=== PATIENT | female | born 1935 | race Caucasian/White ===

== ENCOUNTER 2020-05-24 10:43 | Outpatient (REF) | payer SELFPAY | END 2020-05-24 10:44 | disposition home or self-care (01) | LOC: HO.HAP 10:43 | PROVIDERS: Visit Provider Internal Medicine | DX: Z13.89 Encounter for screening for other disorder (principal) | CPT/HCPCS: 92700 ==

== ENCOUNTER 2020-09-28 14:49 | Outpatient (REF) | payer BC, SELFPAY ==
--- NOTE | ~2020-09-28 | US_ITS ---
EXAMINATION: US VENOUS ULTRASOUND WITH DOPPLER LOWER EXTREMITY, RIGHT CLINICAL INFORMATION: Pain COMPARISON: None TECHNIQUE: Ultrasound of the deep veins is performed from the hip to the calf with compression sonography and color and pulse Doppler assessment. Spectral analysis with color-flow imaging is performed. FINDINGS: There is normal venous compression and respiratory variation and augmented flow. The visualized common femoral vein, superficial femoral vein, profunda femoral vein, popliteal vein, and the trifurcation region shows no evidence of deep venous thrombosis. There is no significant popliteal fossa cyst. US/US venous duplex LE RT IMPRESSION: No DVT demonstrated in the right lower extremity.
== END 2020-09-28 14:50 | disposition home or self-care (01) ==
LOC: HO.US 14:49
PROVIDERS: Visit Provider Internal Medicine
DX: M79.661 Pain in right lower leg (principal); M79.651 Pain in right thigh
CPT/HCPCS: 93971

== ENCOUNTER 2020-10-05 08:44 | Outpatient (REF) | payer BC, SELFPAY ==
[2020-10-05 10:18] LABS: MANUAL DIFF FLAG NO
[2020-10-05 10:32] LABS: Basophils Percent Auto 0.6 % (0-2); Eosinophils Absolute Auto 0.1 X10*3/uL (0.0-0.4); Eosinophils Percent Auto 1.6 % (0-4); Hematocrit 38.8 % (37-47); Hemoglobin 13.2 g/dl (12.0-16.0); Imm Gran Abs Auto 0.01 X10*3/uL (0.00-0.03); Imm Gran Pct Auto 0.2 % (0.0-0.4); Lymphocytes Absolute Auto 2.2 X10*3/uL (1.2-4.9); Lymphocytes Percent Auto 35.3 % (20-40); Mean Corpuscular Hemoglobin 31.7 pg (27.0-33.0); Mean Platelet Volume 11.1 fL (9.4-12.3); Monocytes Absolute Auto 0.4 X10*3/uL (0.1-1.2); Monocytes Percent Auto 6.6 % (2-11); Neutrophils Absolute Auto 3.4 X10*3/uL (2.0-8.3); Neutrophils Percent Auto 55.7 % (45-73); Platelet Count 242 X10*3/uL (160-400); Red Blood Count 4.17 X10*6/uL (4.20-5.50); Red Cell Distribution Width 12.2 % (11.0-16.0); White Blood Count 6.2 X10*3/uL (4.8-10.8)
[2020-10-05 11:06] LABS: Estimated Average Glucose 128 mg/dL; Hemoglobin A1C 148.9295 umol/L; Hemoglobin A1c % 6.1 %
[2020-10-05 11:11] LABS: Alanine Aminotransferase 15 U/L (0-31); Albumin Level 4.1 g/dL (3.5-5.0); Alkaline Phosphatase 95 U/L (39-117); Anion Gap 13 (12-20); Aspartate Amino Transferase 18 U/L (5-31); Bilirubin Total 0.7 mg/dL (0.0-1.0); Blood Urea Nitrogen 32 mg/dL (9-16); Calcium 9.3 mg/dL (8.4-10.2); Carbon Dioxide 27 mmol/L (22-29); Chloride 104 mmol/L (96-108); Cholesterol 196 mg/dL; Estimated Glomerular Filt Rate 58; Glucose Fasting 113 mg/dL (60-99); HDL Cholesterol 50 mg/dL; LDL Cholesterol Calculated 117 mg/dl; Potassium 4.3 mmol/L (3.3-5.1); Sodium 140 mmol/L (135-145); Total Protein 6.9 g/dL (6.5-8.0); Triglycerides 148 mg/dL
[2020-10-05 11:34] LABS: Thyroid Stimulating Hormone 1.37 uIU/mL (0.32-4.0); Vitamin D 25-OH Total 41.1 ng/mL (>30)
== END 2020-10-05 08:45 | disposition home or self-care (01) ==
LOC: HO.10HDL 08:44
PROVIDERS: Visit Provider Internal Medicine
DX: I10 Essential (primary) hypertension (principal); K21.9 Gastro-esophageal reflux disease without esophagitis; E78.00 Pure hypercholesterolemia, unspecified; R73.01 Impaired fasting glucose; E55.9 Vitamin D deficiency, unspecified
CPT/HCPCS: 36415; 80053; 80061; 82306; 83036; 84443; 85025

== ENCOUNTER 2020-10-22 13:24 | Outpatient (REF) | payer BC, SELFPAY ==
[2020-10-22 13:41] VITALS: BP 159/72; PULSE 91; RESP 16; TEMP -13.5; TEMP 7.7; O2SAT 98
[2020-10-22 13:54] VITALS: BMI 36.0
== END 2020-10-22 13:25 | disposition home or self-care (01) ==
LOC: HO.MS 13:24
PROVIDERS: PCP Internal Medicine; Visit Provider Ophthalmology
PROC: (CPT 66821; principal; 2020-10-22 16:20)
DX: H26.491 Other secondary cataract, right eye (principal); H40.013 Open angle with borderline findings, low risk, bilateral; I10 Essential (primary) hypertension; Z79.899 Other long term (current) drug therapy; Z96.1 Presence of intraocular lens
CPT/HCPCS: 66821

== ENCOUNTER 2021-01-23 13:22 | Outpatient (RCR) | payer BC, SELFPAY | END 2021-02-06 11:42 | disposition home or self-care (01) | LOC: HO.WCC 13:22 | PROVIDERS: PCP Internal Medicine; Visit Provider Surgery | DX: S61.012D Laceration without foreign body of left thumb without damage to nail, subsequent encounter (principal) | CPT/HCPCS: 99212 ==

== ENCOUNTER 2021-04-01 09:53 | Outpatient (REF) | payer BC, SELFPAY ==
[2021-04-01 13:47] LABS: Glucose Urine UA NEG (NEG); Leukocyte Esterase Urine TRACE (NEG); Nitrite Urine NEG (NEG); Specific Gravity - Urine 1.015 (1.005-1.025); Urine Blood NEG (NEG); Urine Ketones NEG (NEG); Urine Protein NEG (NEG-TRACE)
[2021-04-01 13:49] LABS: Appearance Urine CLEAR; Color Urine YELLOW
[2021-04-01 13:51] LABS: Hemoglobin 13.1 g/dl (12.0-16.0); Mean Corpuscular HGB Conc 33.6 g/dl (31.0-35.0); Mean Corpuscular Hemoglobin 31.3 pg (27.0-33.0); Mean Corpuscular Volume 93.1 fL (80-98); Mean Platelet Volume 12.1 fL (9.4-12.3); Platelet Count 250 X10*3/uL (160-400); Red Blood Count 4.19 X10*6/uL (4.20-5.50); Red Cell Distribution Width 12.2 % (11.0-16.0); White Blood Count 6.1 X10*3/uL (4.8-10.8)
[2021-04-01 14:07] LABS: Alanine Aminotransferase 16 U/L (0-31); Albumin Level 4.1 g/dL (3.5-5.0); Alkaline Phosphatase 90 U/L (39-117); Anion Gap 16 (12-20); Aspartate Amino Transferase 18 U/L (5-31); Bilirubin Total 0.7 mg/dL (0.0-1.0); Blood Urea Nitrogen 31 mg/dL (9-16); Calcium 9.9 mg/dL (8.4-10.2); Carbon Dioxide 25 mmol/L (22-29); Chloride 106 mmol/L (96-108); Cholesterol 184 mg/dL; Estimated Glomerular Filt Rate 58; Glucose Fasting 100 mg/dL (60-99); HDL Cholesterol 50 mg/dL; LDL Cholesterol Calculated 111 mg/dl; Potassium 4.6 mmol/L (3.3-5.1); Sodium 142 mmol/L (135-145); Total Protein 6.8 g/dL (6.5-8.0); Triglycerides 115 mg/dL
[2021-04-01 14:10] LABS: Bacteria Urine TRACE /LPF; RBC Urine 0-2 /HPF (0); Squamous Epithelial Cell Urine 1+ /LPF; WBC Urine 0-2 /HPF (0-4)
== END 2021-04-01 09:54 | disposition home or self-care (01) ==
LOC: HO.10HDL 09:53
PROVIDERS: Visit Provider Internal Medicine
DX: E78.00 Pure hypercholesterolemia, unspecified (principal); I10 Essential (primary) hypertension
CPT/HCPCS: 36415; 80053; 80061; 81001; 85027

== ENCOUNTER 2021-05-31 09:23 | Outpatient (REF) | payer BC, SELFPAY ==
[2021-05-31 10:29] LABS: Estimated Average Glucose 134 mg/dL; Hemoglobin A1c % 6.3 %
[2021-05-31 10:30] LABS: Glucose Fasting 107 mg/dL (60-99)
== END 2021-05-31 09:24 | disposition home or self-care (01) ==
LOC: HO.10HDL 09:23
PROVIDERS: Visit Provider Internal Medicine
DX: R73.01 Impaired fasting glucose (principal)
CPT/HCPCS: 36415; 82947; 83036

== ENCOUNTER → 2021-07-22 11:02 | Outpatient (BNVA) | payer BC, SELFPAY | PROVIDERS: PCP Internal Medicine; Visit Provider Orthopaedic Surgery | DX: M25.562 Pain in left knee (principal); M70.62 Trochanteric bursitis, left hip; M54.30 Sciatica, unspecified side; R26.9 Unspecified abnormalities of gait and mobility | CPT/HCPCS: 20610; J1100 ==

== ENCOUNTER → 2021-08-07 13:31 | Outpatient (BNVA) | payer BC, SELFPAY | PROVIDERS: PCP Internal Medicine; Referring Provider Internal Medicine; Visit Provider Internal Medicine Cardiovascular Disease | DX: I10 Essential (primary) hypertension (principal); R42 Dizziness and giddiness | CPT/HCPCS: 93005 ==

== ENCOUNTER 2021-08-15 12:47 | Outpatient (REF) | payer BC, SELFPAY ==
[2021-08-15 14:16] LABS: MANUAL DIFF FLAG NO
[2021-08-15 14:21] LABS: Basophils Percent Auto 0.4 % (0-2); Eosinophils Absolute Auto 0.1 X10*3/uL (0.0-0.4); Hematocrit 37.5 % (37.0-47.0); Hemoglobin 12.5 g/dl (12.0-16.0); Imm Gran Abs Auto 0.01 X10*3/uL (0.00-0.03); Imm Gran Pct Auto 0.1 % (0.0-0.4); Lymphocytes Absolute Auto 1.8 X10*3/uL (1.2-4.9); Lymphocytes Percent Auto 25.9 % (20-40); Mean Corpuscular HGB Conc 33.3 g/dl (31.0-35.0); Mean Corpuscular Hemoglobin 31.3 pg (27.0-33.0); Mean Corpuscular Volume 93.8 fL (80.0-98.0); Mean Platelet Volume 11.4 fL (9.4-12.3); Monocytes Absolute Auto 0.5 X10*3/uL (0.1-1.2); Monocytes Percent Auto 7.4 % (2-11); Neutrophils Absolute Auto 4.5 x10*3/uL (2.0-8.3); Neutrophils Percent Auto 65.2 % (45-73); Platelet Count 268 X10*3/uL (160-400); Red Cell Distribution Width 12.7 % (11.0-16.0); White Blood Count 6.9 X10*3/uL (4.8-10.8)
[2021-08-15 14:53] LABS: Anion Gap 13 (12-20); Blood Urea Nitrogen 33 mg/dL (9-16); Calcium 10.1 mg/dL (8.4-10.2); Carbon Dioxide 27 mmol/L (22-29); Chloride 105 mmol/L (96-108); Estimated Glomerular Filt Rate 55; Glucose Random 101 mg/dL (60-115); Potassium 4.8 mmol/L (3.3-5.1); Sodium 140 mmol/L (135-145)
== END 2021-08-15 12:48 | disposition home or self-care (01) ==
LOC: HO.10HDL 12:47
PROVIDERS: Visit Provider Internal Medicine
DX: I10 Essential (primary) hypertension (principal); D72.829 Elevated white blood cell count, unspecified
CPT/HCPCS: 36415; 80048; 85025

== ENCOUNTER → 2021-08-20 11:41 | Outpatient (REF) | payer BC, SELFPAY ==
--- NOTE | 2021-08-20 11:46 | HM_ITS ---
Total monitoring time 3 days and 13 hours. Underlying rhythm is sinus. Minimum heart rate 63/Min. Maximum 114/Min. Average 82/Min. No atrial fibrillation or flutter or AV blocks or pauses. Rare supraventricular ectopy with minimal burden. Rare ventricular ectopy, 1 couplet. 2 morphologies. Minimal burden. No patient events. MTDD
== END ==
LOC: HO.CARD 11:41
PROVIDERS: Visit Provider Internal Medicine Cardiovascular Disease
DX: R42 Dizziness and giddiness (principal)
CPT/HCPCS: 93242

== ENCOUNTER → 2021-09-11 10:30 | Outpatient (REF) | payer BC, MEDICARE, SELFPAY ==
--- NOTE | 2021-09-11 10:32 | CA_ITS ---
Transthoracic Echocardiogram Patient (Last, First, Middle): Bindu Driscoll A Gender: Female Date of : 1935 Age: 86 Procedure Date: 09/11/2021 Procedure Type: Transthoracic Echocardiogram Location: OP Height: 162.56 cm Weight: 92.53 kg BSA: 1.97 m2 Heart Rate: bpm BP: 128 / 78 mmHg Medical Scribe: JOANA Referring MD: Saravanan Arita MD Mash Tub Cooker: Saravanan Arita MD Symptoms: R42 - Dizziness and giddiness Study Quality: Fair ECG Rhythm: Sinus Conclusions: - 1. Normal LV systolic function with impaired relaxation filling pattern 2. Mildly dilated left atrium 3. Normal cardiac valvular Doppler 4. Normal RV systolic pressure 5. No gross pericardial effusion Findings Left Ventricle Normal left ventricular size, thickness, and systolic function. The visually estimated ejection fraction is between 60-65%. Spectral Doppler is indicative of an impaired relaxation filling pattern. E/E prime ratio is between 8 and 15 consistent with indeterminate filling pressures. Right Ventricle Normal right ventricular cavity size and systolic function. Atria The left atrium is mildly dilated. Interatrial shunt cannot be excluded. The right atrium is normal in size. Aortic Valve There is mild calcification of the aortic valve. There is no aortic valve stenosis. There is no aortic valve regurgitation. Mitral Valve There is mild anterior and posterior mitral leaflet thickening. There is mild mitral annular calcification. There is trace mitral valve regurgitation. There is no mitral valve stenosis. Pulmonic Valve The pulmonic valve was not well visualized. Tricuspid Valve Likely normal tricuspid valve structure and function. There is trace tricuspid valve regurgitation. The right ventricular systolic pressure is normal. The right ventricular systolic pressure is 15 mmHg. Normal right atrial pressure. There is no evidence of pulmonary hypertension. Great Vessels All visible segments of the aorta are normal in size. The pulmonary artery was not well visualized. Venous The inferior vena cava is normal in size and collapses greater than 50% with inspiration. Pericardium/Pleural There is no evidence of pericardial effusion. Prior Study Comparison No prior study available for comparison. Measurements 2D Linear Measurements IVSd: 1.11 0.6-0.9/0.6-1.0 cm LVIDd: 4.68 3.9-5.3/4.2-5.9 cm LVIDd Index: 2.38 2.4-3.2/2.2-3.1 cm/m2 LVIDs: 3.46 2.0-3.6 cm LVPWd: 0.95 0.7-1.1 cm Ao Root: 3.30 2.1-3.5 cm LA Diam: 3.20 2.7-3.8/3.0-4.0 cm LAIDs Index: 1.62 1.5-2.3 cm/m2 LV Mass: 211.12 67-162/88-224 g LV Mass Index: 107.17 43-95/49-115 g/m2 LVOT Diam: 2.10 3.0+(-)1.3 cm 2D Systolic Function EF 4C: 61.60 >55% EF 2C: 72.70 >55% EF BiP: 68.40 >55% Mitral Valve MV Pk E: 0.67 MV PK A: 1.10 MV Decel Time: 183.00 E/A: 0.60 E'Lateral: 7.07 E'Medial: 5.55 E/E' Med: 12.10 E/E' Lat: 9.50 PHT: 54.00 MVA PHT: 4.07 Decel [place]: 3.67 Aortic Valve AoV Pk Bob: 1.60 AoV Mn Bob: 1.08 AoV VTI: 0.35 AoV Pk Grad: 10.00 Aov Mn Grad: 5.00 GROVER Cont.VTI: 2.41 LVOT LVOT Pk Bob: 1.05 LVOT Mn Bob: 0.72 LVOT VTI: 0.24 LVOT Pk Grad: 4.00 LVOT Mn Grad: 2.00 LVOT Diam: 2.10 LVOT Area: 3.46 Diastolic Function MV Pk E: 0.67 MV Pk A: 1.10 E/A: 0.60 E'Medial: 5.55 E/E' Med: 12.10 E' Laterial: 7.07 E/E' Lat: 9.50 Right Ventricle TAPSE (mm): 21.30 TVS' Bob: 9.03 Tricuspid Valve TR Pk Bob: 1.75 TR Pk Grad: 12.00 RA Press: 3.00 RVSP: 15.00 Great Vessels Aorta Ao Root-2D: 3.30 2.0-3.7 cm Ao Asc: 3.10 2.1-3.4 cm Ao Arch: 2.60 Updated in Other Vendor System with Status of Final Saravanan Arita MD electronically signed on 09/11/2021 2:07:10 PM with status of Final
== END ==
LOC: HO.CARD 10:30
PROVIDERS: PCP Internal Medicine; Visit Provider Internal Medicine Cardiovascular Disease
DX: R42 Dizziness and giddiness (principal)
CPT/HCPCS: 93306

== ENCOUNTER → 2021-09-12 11:18 | Outpatient (BNVA) | payer BC, MEDICARE, SELFPAY | PROVIDERS: PCP Internal Medicine; Referring Provider Internal Medicine; Visit Provider Internal Medicine Cardiovascular Disease ==

== ENCOUNTER → 2021-09-18 10:02 | Outpatient (REF) | payer BC, SELFPAY ==
--- NOTE | ~2021-09-18 | NM_ITS ---
Myocardial perfusion study Indication: Dizziness evaluate for myocardial ischemia Technique: The patient was brought in for a Lexiscan perfusion study on 09/18/2021. Patient performed low-level exercise and was injected 0.4 mg of Lexiscan intravenously. Within a minute of injection, 25 mCi of sestamibi was given intravenously. Images were obtained using the SPECT gamma camera interlaced with the gating device. Images were obtained in supine position. Resting perfusion study was performed on 09/19/2021. Patient was administered 25 mCi of sestamibi intravenously at rest. Images were then obtained in supine position. Images obtained with and without CT attenuation. Total DLP 129 mGy-cm. Images were processed with the software and compared side to side in short axis, horizontal long axis and vertical long axis views. Findings: The stress perfusion study showed non attenuated images show minimally reduced uptake in thinning in the distal lateral wall of the LV myocardium.. Otherwise normal uptake in the other segments. Attenuation corrected images show normal uptake in all segments of LV myocardium.. The gated study shows normal LV systolic function with calculated LVEF of 71%. LV cavity is normal in size. The gated study shows normal systolic wall thickening and contraction of segments. Resting study shows attenuated corrected images show normal uptake of radiotracer in all segments of LV myocardium. Gating at rest reveals normal systolic wall motion with ejection fraction at 68%. The findings are consistent with normal myocardial perfusion. NM/NM vanda perf SPECT rest & str Impression: 1. Myocardial perfusion imaging study shows normal myocardial perfusion 2. Gated LVEF is 68% 3. Transient ischemic dilatation not present EKG is nondiagnostic for ischemia
--- NOTE | 2021-09-18 10:05 | CA_ITS ---
Acquisition Time: 2021-09-18 10:29:30 Total Exercise Time: 00:02:00 Test Indications: dizziness Medications: Protocol: LEXISCAN Max HR: 111 BPM 81% of Pred: 136 BPM Max BP: 146/068 mmHG Max Work Load: 1.0 METS Pharmacological stress test with Lexiscan injection, while sitting and kicking her legs, without anginal symptoms, with isolated PVCs, with normotensive response to injection, with nondiagnostic EKG for ischemia. In recovery she reported fatigue and was treated with Aminophyllne 75mg IVP to reverse Lexscan with resolution of symptom. Nuclear images pending. Test reviewed with Dr Arita. Referred By: Saravanan Arita Overread By: AKASH LOZADA
== END ==
LOC: HO.CARD 10:02
PROVIDERS: Visit Provider Internal Medicine Cardiovascular Disease
DX: R42 Dizziness and giddiness (principal); I10 Essential (primary) hypertension
CPT/HCPCS: 78452; 93017; A9500; J0280; J2785

== ENCOUNTER 2022-01-08 12:24 | Outpatient (REF) | payer BC, SELFPAY ==
--- NOTE | ~2022-01-08 | US_ITS ---
EXAMINATION: US ABDOMEN COMPLETE CLINICAL INFORMATION: Nausea, gallstones. COMPARISON: CT abdomen and pelvis with contrast 10/18/2018. TECHNIQUE: Real-time imaging of the abdominal viscera. FINDINGS: PANCREAS: Normal. ABDOMINAL AORTA: The proximal, mid, and distal segments are normal in caliber. INFERIOR VENA CAVA: Visualized portions are normal. LIVER: The liver is normal in size. The liver contour is normal. Parenchymal echogenicity is normal. There is no intrahepatic biliary duct dilatation seen. There is an anechoic cyst in the right hepatic lobe measuring 0.9 x 0.8 x 0.8 cm. GALLBLADDER: The gallbladder is physiologically distended. Multiple mobile gallstones are present. No evidence of gallbladder wall thickening or pericholecystic fluid. COMMON BILE DUCT: Normal in caliber measuring 0.3 cm in diameter. RIGHT KIDNEY: There is an anechoic upper pole cyst measuring 5.1 x 4.5 x 4.8 cm. No hydronephrosis or renal calculi. The kidney measures 9.0 cm in maximum dimension. LEFT KIDNEY: Normal. No hydronephrosis. No renal calculi or focal parenchymal lesions. The kidney measures 9.6 cm in maximum dimension. SPLEEN: Normal. The spleen measures 9.1 cm in maximum dimension. FREE FLUID: None. US/US abdomen complete IMPRESSION: Cholelithiasis without wall thickening. Right hepatic lobe and right renal upper pole cysts.
== END 2022-01-08 12:25 | disposition home or self-care (01) ==
LOC: HO.US 12:24
PROVIDERS: PCP Internal Medicine; Visit Provider Internal Medicine
DX: R11.0 Nausea (principal); K80.20 Calculus of gallbladder without cholecystitis without obstruction
CPT/HCPCS: 76700

== ENCOUNTER 2022-01-09 09:49 | Outpatient (REF) | payer BC, SELFPAY ==
[2022-01-09 10:11] LABS: MANUAL DIFF FLAG NO
[2022-01-09 10:28] LABS: Basophils Percent Auto 0.5 % (0-2); Eosinophils Absolute Auto 0.1 X10*3/uL (0.0-0.4); Eosinophils Percent Auto 1.2 % (0-4); Hematocrit 38.7 % (37.0-47.0); Hemoglobin 12.8 g/dl (12.0-16.0); Imm Gran Abs Auto 0.02 X10*3/uL (0.00-0.03); Imm Gran Pct Auto 0.3 % (0.0-0.4); Lymphocytes Percent Auto 26.2 % (20-40); Mean Corpuscular HGB Conc 33.1 g/dl (31.0-35.0); Mean Corpuscular Volume 93.7 fL (80.0-98.0); Mean Platelet Volume 10.4 fL (9.4-12.3); Monocytes Absolute Auto 0.5 X10*3/uL (0.1-1.2); Monocytes Percent Auto 6.3 % (2-11); Neutrophils Absolute Auto 5.1 x10*3/uL (2.0-8.3); Neutrophils Percent Auto 65.5 % (45-73); Platelet Count 274 X10*3/uL (160-400); Red Blood Count 4.13 X10*6/uL (4.20-5.50); Red Cell Distribution Width 13.2 % (11.0-16.0); White Blood Count 7.7 X10*3/uL (4.8-10.8)
[2022-01-09 10:56] LABS: Alanine Aminotransferase 16 U/L (0-31); Alkaline Phosphatase 95 U/L (39-117); Amylase 54 U/L (28-100); Aspartate Amino Transferase 17 U/L (5-31); Bilirubin Direct 0.3 mg/dL (0.0-0.5); Bilirubin Total 0.8 mg/dL (0.0-1.0); Lipase 12 U/L (8-78); Total Protein 6.6 g/dL (6.5-8.0)
[2022-01-09 10:58] LABS: Alanine Aminotransferase 17 U/L (0-31); Alkaline Phosphatase 94 U/L (39-117); Anion Gap 14 (12-20); Aspartate Amino Transferase 18 U/L (5-31); Bilirubin Total 0.8 mg/dL (0.0-1.0); Blood Urea Nitrogen 31 mg/dL (9-16); Calcium 9.5 mg/dL (8.4-10.2); Carbon Dioxide 26 mmol/L (22-29); Chloride 106 mmol/L (96-108); Cholesterol 196 mg/dL; Estimated Glomerular Filt Rate 54; Glucose Random 101 mg/dL (60-115); HDL Cholesterol 53 mg/dL; LDL Cholesterol Calculated 124 mg/dl; Potassium 4.6 mmol/L (3.3-5.1); Sodium 141 mmol/L (135-145); Total Protein 6.7 g/dL (6.5-8.0); Triglycerides 95 mg/dL
[2022-01-09 11:16] LABS: Appearance Urine CLEAR; Color Urine YELLOW; Glucose Urine UA NEG (NEG); Leukocyte Esterase Urine 1+ (NEG); Nitrite Urine NEG (NEG); Urine Blood NEG (NEG); Urine Ketones NEG (NEG); Urine Protein NEG (NEG-TRACE)
[2022-01-09 11:20] LABS: Free T4 (Free Thyroxine) 1.29 ng/dL (0.71-1.85); Thyroid Stimulating Hormone 0.98 uIU/mL (0.32-4.0)
[2022-01-09 13:40] LABS: Squamous Epithelial Cell Urine 2+ /LPF
[2022-01-09 13:42] LABS: RBC Urine 0 /HPF (0)
== END 2022-01-09 09:50 | disposition home or self-care (01) ==
LOC: HO.LAB 09:49
PROVIDERS: Absent Provider Internal Medicine; PCP Internal Medicine; Visit Provider Internal Medicine
DX: I10 Essential (primary) hypertension (principal); K21.00 Gastro-esophageal reflux disease with esophagitis, without bleeding; E78.00 Pure hypercholesterolemia, unspecified; R11.0 Nausea; K80.20 Calculus of gallbladder without cholecystitis without obstruction
CPT/HCPCS: 36415; 80053; 80061; 80076; 81001; 82150; 82248; 83690; 84439; 84443; 85025

== ENCOUNTER 2022-01-14 11:12 | Outpatient (REF) | payer BC, SELFPAY ==
--- NOTE | ~2022-01-14 | MM_ITS ---
EXAMINATION: MM SCREENING DIGITAL BREAST TOMOSYNTHESIS, BILATERAL CLINICAL INFORMATION: Screening. Asymptomatic. The lifetime risk of breast cancer based on the Tyrer-Cuzick Model is 1%. COMPARISON: Mammography: 10/10/2019, 06/07/2018, 01/13/2017 TECHNIQUE: Digital breast tomosynthesis is performed in both the craniocaudal and mediolateral oblique views along with computer-aided detection (CAD). Synthesized 2D images are generated from the tomosynthesis. FINDINGS: There are scattered areas of fibroglandular density (ACR BI-RADS breast composition Category b). There are no significant masses, abnormal calcifications, or other abnormalities. Parenchymal pattern is similar to prior studies. No developing density or interval architectural abnormality. The axilla and skin contours are unremarkable. Left breast again shows stable grouped ductal secretory calcifications central breast mid depth. Right breast again shows stable punctate round calcifications anterior upper outer breast also stable since 2017. MM/MM tomosynthesis screening BI IMPRESSION: No significant changes from prior studies. ASSESSMENT: BI-RADS 2: Benign RECOMMENDATION: Routine annual mammography screening. This patient's information was entered into a reminder system with a target due date for their next mammogram.
== END 2022-01-14 11:13 | disposition home or self-care (01) ==
LOC: HO.MAMMO 11:12
PROVIDERS: PCP Internal Medicine; Visit Provider Internal Medicine
DX: Z12.31 Encounter for screening mammogram for malignant neoplasm of breast (principal)
CPT/HCPCS: 77063; 77067

== ENCOUNTER 2022-09-10 09:00 | Outpatient (RCR) | payer BC, SELFPAY | END 2022-09-10 16:00 | disposition home or self-care (01) | LOC: HO.WCC 09:00 | PROVIDERS: PCP Internal Medicine; Visit Provider Physician Assistant | DX: S51.011D Laceration without foreign body of right elbow, subsequent encounter (principal); M31.6 Other giant cell arteritis; Z79.52 Long term (current) use of systemic steroids; Z79.899 Other long term (current) drug therapy | CPT/HCPCS: 97597; 99212 ==

== ENCOUNTER 2023-08-07 08:06 | Outpatient (RCR) | payer BC, SELFPAY | END 2023-08-31 17:00 | disposition home or self-care (01) | LOC: HO.WCC 08:06 | PROVIDERS: PCP Internal Medicine; Visit Provider Physician Assistant | DX: I87.331 Chronic venous hypertension (idiopathic) with ulcer and inflammation of right lower extremity (principal); L97.811 Non-pressure chronic ulcer of other part of right lower leg limited to breakdown of skin; M31.5 Giant cell arteritis with polymyalgia rheumatica | CPT/HCPCS: 11042; 97597; 99212 ==

== ENCOUNTER 2024-07-31 00:25 | Observation (INO) | payer MEDICARE, BC, SELFPAY ==
[2024-07-31] VITALS (10 sets, daily range): BP systolic 124–156; BP diastolic 42–66; PULSE 55–101; RESP 15–20; TEMP 36.1–36.5; O2SAT 55–100; BMI 34.8; BMI 35.3
--- NOTE | ~2024-07-31 | XR_ITS ---
CLINICAL HISTORY: rt proximal humerus fx 2 view right shoulder Comparison: CT/SR - CT CHEST W IV CON - 07/31/24 01:17 EST Findings: The slightly comminuted right humeral neck fracture is reidentified. The shaft is displaced at least one shaft width anteriorly relative to the humeral head and there is associated shortening. Fracture margins appear relatively well corticated and may be chronic. Small surrounding foci of heterotopic ossification versus intra-articular bodies. Mild glenohumeral and acromioclavicular osteoarthritis. IMPRESSION: Right humeral neck fracture is reidentified. The fracture is favored to be chronic given the relatively well corticated margins and pseudoarthrosis which are better seen on the same-day chest CT. This document has been electronically signed by: Maury Ryan DO on 07/31/2024 09:52:52
--- NOTE | ~2024-07-31 | CT_ITS ---
CLINICAL HISTORY: fall, N V CT head without contrast Comparison: None Findings: No acute intracranial hemorrhage. Mild white matter lesions are nonspecific and likely due to small-vessel ischemic disease. Mild-moderate volume loss is generalized. No hydrocephalus accounting for this volume loss. No midline shift. Low bone mineralization suggested. No acute skull fracture. Imaged paranasal sinuses and imaged mastoid air cells are well aerated. Vascular calcifications noted. Scleral calcifications noted. Previous cataract procedure changes noted. Metal artifacts about imaged mouth. IMPRESSION: 1. No acute intracranial abnormality by CT. 2. No acute skull fracture. This document has been electronically signed by: Jesus Cardoso MD on 07/31/2024 02:00:03
--- NOTE | ~2024-07-31 | CT_ITS ---
CLINICAL HISTORY: fall, large equimosis R flank R back CT abdomen and pelvis with contrast Comparison: None Findings: Acute nondisplaced right dorsal-lateral 10th, 11th, and 12th rib fractures are in the [id number] of this abdomen study. Overlying soft tissue hematoma superficial measuring 5.7 x 9.7 cm. Mild atelectasis in the [id number]. No acute solid abdominal organ injury. Mild fat deposition in the liver with nonenlarged spleen. Mild adrenal hyperplasia. Cholelithiasis noted in the distended gallbladder. Pancreas unremarkable. No hydronephrosis of either kidney. No suspicious features of cystic lesions in the kidneys with largest measuring 6 cm on the right. Small mesenteric lymph nodes may be reactive. No small bowel obstruction in the ljwue-sl-gura. Calcified and noncalcified plaque involving the imaged aorta and its branches. Imaged appendix is retrocecal and nondilated. Severe stool burden is present, including the cecum. Uterus is diminutive or surgically absent. No definite adnexal soft tissue mass. Portions of the pelvis obscured by artifacts including from metal of the left hip arthroplasty. No definite hardware loosening. No acute pelvic fracture. Mild pelvis deformities appear old chronic. Grade 1 anterolisthesis at L4-L5. Vacuum disc phenomenon is multifocal. Facet arthropathy is multifocal. Subcutaneous edema noted particularly dependently. IMPRESSION: 1. Acute nondisplaced right dorsal rib fractures in the [id number] of this abdomen study. No acute solid organ injury. 2. Right dorsal soft tissue hematoma; approaching 10 cm. 3. Severe stool burden. No small bowel obstruction. 4. Cholelithiasis by CT. This document has been electronically signed by: Jesus Cardoso MD on 07/31/2024 02:11:56
--- NOTE | ~2024-07-31 | CT_ITS ---
CLINICAL HISTORY: fall, large equimosis R flank R back Exam: CT chest with contrast Comparison: Chest CT from 10/03/2016 Findings: New mild bibasilar atelectasis and scarring. No consolidation, pneumothorax, or pleural effusion. Scarring includes the imaged lung apices with mild emphysematous changes. Mild secretions noted in the imaged trachea. Vascular calcifications noted including aorta, its branches, and coronary arteries. No mediastinal hematoma or acute aortic injury. Multiple artifacts including about imaged thyroid. Comminuted fracture of the proximal humerus is favored to be old/chronic. Small lucencies relates concern for acuity and/or re-injury with overriding of the major fracture fragments. Degenerative changes include both shoulders. No displaced rib fracture in the field of view. Please refer to separate report for abdomen and pelvis. Partially imaged right dorsal hematoma measures 5 x 9 cm in the field of view of the chest study. No underlying right dorsal rib fracture in the field of view. Mild mid and upper vertebral height losses appear old chronic including T4. Impression: 1. Right dorsal hematoma without underlying displaced rib fracture in the field of view. Please refer to separate report for abdomen and pelvis. 2. Comminuted proximal right humerus fracture with likely re-injury given proximal lucencies. 3. Mild bibasilar atelectasis and scarring. This document has been electronically signed by: Jesus Cardoso MD on 07/31/2024 02:10:30
--- NOTE | ~2024-07-31 | CT_ITS ---
CLINICAL HISTORY: fall CT cervical spine without contrast Comparison: None Findings: Straightening of the cervical lordosis with multifocal facet arthropathy. No acute fracture cervical spine. Partial anterior fusion of the C1 and C2 with moderate osteoarthritis of the craniocervical junction. Ligament calcifications are multifocal. Nutrient vessel channels noted. No significant listhesis. Disc osteophyte complexes with mild spinal canal stenosis at C5-C6 and C6-C7 with mild to moderate foraminal narrowing at C5-C6. Low bone mineralization suggested including imaged clivus. No paraspinal hematoma. Vascular calcifications noted. Subcutaneous edema is present. Mild scarring of the imaged lung apices. IMPRESSION: No acute fracture of the cervical spine. This document has been electronically signed by: Jesus Cardoso MD on 07/31/2024 01:57:35
--- NOTE | 2024-07-31 00:38 | ECG_ITS ---
Test Reason : WEAKNESS Blood Pressure : / mmHG Vent. Rate : 079 BPM Atrial Rate : 079 BPM P-R Int : 166 ms QRS Dur : 140 ms QT Int : 420 ms P-R-T Axes : 028 -09 073 degrees QTc Int : 481 ms Normal sinus rhythm Left bundle branch block Abnormal ECG No previous ECGs available Referred By: Tiara Lopez Electronically Signed By:ARTUR DEGROOT MD
--- NOTE | 2024-07-31 00:47 | ECG_ITS ---
Test Reason : WEAKNESS Blood Pressure : / mmHG Vent. Rate : 080 BPM Atrial Rate : 080 BPM P-R Int : 168 ms QRS Dur : 144 ms QT Int : 422 ms P-R-T Axes : 040 -09 074 degrees QTc Int : 486 ms Normal sinus rhythm Left bundle branch block Abnormal ECG When compared with ECG of 31-JUL-2024 00:41, No significant change was found Referred By: Tiara Lopez Electronically Signed By:ARTUR DEGROOT MD
--- NOTE | 2024-07-31 00:53 | ED.FALL ---
HPI - Fall General Chief Complaint: Fall Stated Complaint: Fall Time Seen by Provider: 07/31/24 00:38 Source: patient and EMS Mode of arrival: EMS Limitations: other History of Present Illness ED Provider: Dr. Tiara Lopez HPI Narrative: Patient comes to the emergency room complaining of a fall. Patient states that earlier today, 13 hours ago she was at home, patient was standing, turning around, lost her footing and fell landing on her right side of her body. Patient states that she does not believe that she hit her head or lost consciousness. However, patient was complaining of pain in the right side of her body around the chest/abdominal area. Patient was not able to get up by herself, her son help her. Patient states that she was doing well for the rest of the day until almost 12 hours later after the fall. Patient had nausea vomiting. Patient's son became concerned and sent the patient to the emergency room. Patient complaining of ongoing pain in the right side of the ribs/abdomen, denies headache, no neck pain. Denies shortness of breath. Patient denies being on blood thinners Related Data Home Medications ?Medication ?Instructions ?Recorded ?Confirmed [id number] acid 0.4 1 tab PO DAILY 07/22/21 09/12/21 mg-lycopene 300 mcg-lutein 250 mcg tablet (Centrum Silver) omeprazole 20 mg capsule,delayed 20 mg PO DAILY 07/22/21 09/12/21 release ramipril 5 mg capsule (Altace) 5 mg PO DAILY 07/22/21 09/12/21 cholecalciferol (vitamin D3) 25 25 mcg PO DAILY 08/07/21 09/12/21 mcg (1,000 unit) capsule hydrochlorothiazide 12.5 mg tablet 12.5 mg PO 3XW 08/07/21 09/12/21 atorvastatin 20 mg tablet 40 mg PO DAILY 09/12/21 09/12/21 Allergies Allergy/AdvReac Type Severity Reaction Status Date / Time Sulfa (Sulfonamide AdvReac Intermediate GI UPSET Verified 07/31/24 01:13 Antibiotics) [SULFA (SULFONAMIDE ANTIBIOTICS)] Review of Systems Review of Systems: Constitutional : No Weight loss, No Fever, No Chills, No Night Sweats, No Fatigue, No Malaise ENT/Mouth : No Hearing loss, No Ear Pain, No Nasal Congestion, No Sinus Pain, No Hoarseness, No sore throat, No Rhinorrhea, No Swallowing Difficulty Eyes: No Eye Pain, No Swelling, No Redness, No Foreign Body, No Discharge, No Vision Changes Cardiovascular : No Chest Pain, No SOB, No Dyspnea on Exertion, No Orthopnea, No Edema, No Palpitations Respiratory : No Cough, No Sputum, No Wheezing, No Smoke Exposure, No Dyspnea Gastrointestinal : Earlier today 1 episode of nausea and vomiting, No Diarrhea, No Constipation, complaining of right-sided abdominal pain/rib pain Genitourinary : no irregular bleeding, No Dysuria, No Urinary Frequency, No Hematuria, No Urinary Incontinence, No Urgency, No Flank Pain, No Urinary Flow Changes, No Hesitancy Musculoskeletal : Complaining of pain in the right side of the ribs, No Myalgias, No Joint Swelling Skin : No Skin Lesions, No rash Neuro : No Weakness, No Numbness, No Paresthesias, No Loss of Consciousness, No Dizziness, No Headache Psych : No Anxiety/Panic, No Depression, No SI/HI/AH/VH, No Social Issues, Heme/Lymph: No Bruising, No Bleeding,No Lymphadenopathy Endocrine : No Polyuria, No Polydipsia, No Temperature Intolerance PMFSH Past Medical History Medical History GERD (gastroesophageal reflux disease) Hypercholesteremia Hypertension Surgical History H/O: hysterectomy Family History Family History Mother Cardiovascular disease Atrial fibrillation Father CHF (congestive heart failure) Sister Diabetes Social History Social History Alcohol intake: current Alcohol intake frequency: a few times a month Alcohol type: wine Patient Tobacco Use Status: Never used Tobacco Advance Directives: No Advance Directives Information Provided: Yes Current occupational status: retired Physical Exam Vital Signs: Vital Signs: Last Vital Signs Temp 97.6 F 07/31/24 01:00 Pulse 78 07/31/24 01:00 Resp 19 07/31/24 01:00 BP 131/42 L 07/31/24 01:00 Pulse Ox 97 07/31/24 01:00 O2 Del Method Room Air 07/31/24 01:00 BMI result Body Mass Index 34.8 Const: Other: Appearance: Alert. Oriented X3. No acute distress. Eyes: Pupils equal, round and reactive to light. ENT: Pharynx normal. Neck: Normal inspection. Neck supple. No lymph nodes noted. No crepitus CVS: Normal heart rate and rhythm. Pulses normal. Normal S1 and S2 Respiratory: No respiratory distress. Breath sounds normal. No Wheezing. No rales Abdomen: Soft and nontender. No rigidity. No distention. Skin: Skin warm and dry. Patient has an extensive ecchymosis on the right side of the chest, more on the lateral side/posterior Extremities: No lower extremity edema. No Lacerations. No Rash Neuro: Oriented X 3. No motor deficit. No sensory deficit. Moving all extremities. No slurred speech. CN 2 through 12 grossly intact Psych: calm, cooperative, normal affect Course Course Course Narrative: Patient has an extensive ecchymosis on the right side of her body around the posterior/lateral aspect of the ribs All of patient's labs pending CT scan pending Patient declined pain medication at this time Medications Administered Discontinued Medications Generic Name Dose Route Start Last Admin Trade Name Freq PRN Reason Stop Dose Admin Iohexol 85 ml 07/31/24 01:31 07/31/24 01:31 Iohexol 350 Mg/Ml 100 Ml Infus..Btl IV 07/31/24 01:32 85 ml ONCE ONE Administration Medical Decision Making Medical Decision Making [facility] Narrative: My interpretation of labs: Patient's hematology shows a decreased hemoglobin and hematocrit (9.6/28.1) from previous labs (12.8/38.7). However, previous labs were drawn in 2021. Patient's chemistry does not show any significant acute abnormality, troponin negative. Serology negative for influenza RSV and COVID Head CT and cervical spine CT do not show any acute abnormality. CT scans of chest abdomen and pelvis show a large ecchymosis in the right posterior back and posterior nondisplaced rib fractures, 10 11 and 12 Hemoglobin/hematocrit was repeated, no significant change, now hemoglobin is 9.4, overall stable Vitals are stable Patient states that she does not have any pain. However, any tetanus she moves she has significant pain. Patient states that at this time she would like some Tylenol but nothing stronger than that. Patient states that as long as she does not move she has no pain. Patient lives by herself, patient states that she has services at home, visiting nurses twice a day but no one at night to help her. Patient's children are working on getting her a visiting nurse for nighttime. According to the patient's son who is at bedside, they will start the process 1st thing in the morning Urinalysis is pending, patient has not provided a urine sample. I discussed the patient with Dr. Faust from the Medicine team, patient being admitted for observation and pain management Differential Diagnosis Differential Diagnoses: The differential diagnosis associated with the presentation includes (Contusion, ecchymosis with active extravasation, cervical spine injury, intracranial hemorrhage, UTI) Lab Data MDM Lab Attestation statement: I reviewed the patient's lab results. 07/31/24 02:40 07/31/24 00:58 Labs: Lab Results 07/31/24 07/31/24 07/31/24 Range/Units 00:57 00:58 02:40 WBC 7.5 7.7 (4.8-10.8) X10*3/uL RBC 2.87 L D 2.84 L (4.20-5.50) X10*6/uL Hgb 9.6 L D 9.4 L (12.0-16.0) g/dl Hct 28.1 L D 27.6 L (37.0-47.0) % MCV 97.9 97.2 (80.0-98.0) fL MCH 33.4 H 33.1 H (27.0-33.0) pg MCHC 34.2 34.1 (31.0-35.0) g/dl RDW 11.8 11.9 (11.0-16.0) % Plt Count 173 D 169 (160-400) X10*3/uL MPV 10.2 10.1 (9.4-12.3) fL Immature Gran % (Auto) 0.1 (0.0-0.4) % Neut % (Auto) 75.7 H (45-73) % Lymph % (Auto) 16.4 L (20-40) % [place] % (Auto) 6.7 (2-11) % Eos % (Auto) 0.7 (0-4) % Baso % (Auto) 0.4 (0-2) % Lymph # (Auto) 1.2 (1.2-4.9) X10*3/uL [place] # (Auto) 0.5 (0.1-1.2) X10*3/uL Eos # (Auto) 0.1 (0.0-0.4) X10*3/uL Baso # (Auto) 0.0 (0.0-0.2) X10*3/uL Abs Immat Gran (auto) 0.01 (0.00-0.03) X10*3/uL Absolute Neuts (auto) 5.6 (2.0-8.3) x10*3/uL Absolute Nucleated RBC 0.000 0.000 (0.0-0.012) X10*3/uL Nucleated RBC % (auto) 0.0 0.0 (0.0-0.2) /100WBC PT 11.1 (10.9-12.4) SEC INR 1.0 (0.9-1.1) Sodium 141 (135-145) mmol/L Potassium 4.5 (3.3-5.1) mmol/L Chloride 107 (96-108) mmol/L Carbon Dioxide 24 (22-29) mmol/L Anion Gap 15 (12-20) BUN 42 H (9-16) mg/dL Creatinine 1.22 (0.5-1.4) mg/dL Estim Creat Clear Calc 34.3 Estimated GFR 42 Random Glucose 165 H (60-115) mg/dL Calcium 8.9 D (8.4-10.2) mg/dL Total Bilirubin 0.3 (0.0-1.0) mg/dL AST 26 (5-31) U/L ALT 17 (0-31) U/L Alkaline Phosphatase 55 (39-117) U/L Troponin I High Sens 9.6 (<3.5-17.0) ng/L Total Protein 5.5 L (6.5-8.0) g/dL Albumin 3.4 L (3.5-5.0) g/dL Influenza Type A (PCR) NEGATIVE (Negative) Influenza Type B (PCR) NEGATIVE (Negative) RSV RNA Qual (PCR) NEGATIVE (Negative) SARS-CoV-2 RNA (RT-PCR) NEGATIVE (Negative) Independent Interpretation I performed an independent interpretation of an: CT Scan Radiology Impression Discussion of test interpretation with radiology: I have reviewed the radiologist's reading. Radiologist Impression: 1. Acute nondisplaced right dorsal rib fractures in the [id number] of this abdomen study. No acute solid organ injury. 2. Right dorsal soft tissue hematoma; approaching 10 cm. 3. Severe stool burden. No small bowel obstruction. 4. Cholelithiasis by CT. 1. Right dorsal hematoma without underlying displaced rib fracture in the field of view. Please refer to separate report for abdomen and pelvis. 2. Comminuted proximal right humerus fracture with likely re-injury given proximal lucencies. 3. Mild bibasilar atelectasis and scarring. 1. No acute intracranial abnormality by CT. 2. No acute skull fracture. No acute fracture of the cervical spine Independent Historian Clinical information obtained from an independent historian. History obtained from or confirmed by: EMS Critical Care Time Critical Care Time Critical Care Time: Yes Total Critical Care Time: 60 Attestation: I have personally provided critical care time. Time includes review of lab data, radiology results, discussion with consultants, and monitoring for potential decompensation. Intervention performed as documented. Discharge Plan Discharge Clinical Impression: Closed rib fracture, Hematoma and contusion Patient Disposition: Admitted As Inpatient Prescriptions: No Action ramipril [Altace] 5 mg capsule 5 mg PO DAILY omeprazole 20 mg capsule,delayed release(DR/EC) 20 mg PO DAILY Centrum Silver 0.4-300-250 mg-mcg-mcg tablet 1 tab PO DAILY hydrochlorothiazide 12.5 mg tablet 12.5 mg PO 3XW atorvastatin 20 mg tablet 40 mg PO DAILY cholecalciferol (vitamin D3) 25 mcg (1,000 unit) capsule 25 mcg PO DAILY Print Language: Turkish
[2024-07-31 01:02] LABS: MANUAL DIFF FLAG NO
[2024-07-31 01:04] LABS: Basophils Percent Auto 0.4 % (0-2); Eosinophils Absolute Auto 0.1 X10*3/uL (0.0-0.4); Eosinophils Percent Auto 0.7 % (0-4); Hematocrit 28.1 % (37.0-47.0); Hemoglobin 9.6 g/dl (12.0-16.0); Imm Gran Abs Auto 0.01 X10*3/uL (0.00-0.03); Imm Gran Pct Auto 0.1 % (0.0-0.4); Lymphocytes Absolute Auto 1.2 X10*3/uL (1.2-4.9); Lymphocytes Percent Auto 16.4 % (20-40); Mean Corpuscular HGB Conc 34.2 g/dl (31.0-35.0); Mean Corpuscular Hemoglobin 33.4 pg (27.0-33.0); Mean Corpuscular Volume 97.9 fL (80.0-98.0); Mean Platelet Volume 10.2 fL (9.4-12.3); Monocytes Absolute Auto 0.5 X10*3/uL (0.1-1.2); Monocytes Percent Auto 6.7 % (2-11); Neutrophils Absolute Auto 5.6 x10*3/uL (2.0-8.3); Neutrophils Percent Auto 75.7 % (45-73); Platelet Count 173 X10*3/uL (160-400); Red Blood Count 2.87 X10*6/uL (4.20-5.50); Red Cell Distribution Width 11.8 % (11.0-16.0); White Blood Count 7.5 X10*3/uL (4.8-10.8)
--- NOTE | 2024-07-31 01:15 | PC.NURSE ---
pt BIBA from home. PT reports she was getting dressed around 12pm and while turning she fell onto her side. PT denies LOC or HS and any dizziness, lightheadedness or weakness prior to fall. States she falls at times d/t no peripheral vision and mobility issues. PT continued on with her day and spent time with many family members through out the day. At around 11p, pt was sitting on the toilet and she began to feel dizzy and nauseous. PT had one episode of vomiting and reports she gelt much better. Son called EMS for her to be evaluated. PT is a/ox4, vss, in no acute distress at this time. Large ecchymosis noted on right flank, Skin intact- no open wounds reported or noted. PT endorsing pain and tenderness in R flank. PT has full range of motion of all extremities. Previous Left hip replacement. Pt changed into hospital gown. 20g IV placed above R wrist. Labs drawn and sent down to labs, ekg completed and provider reviewed. Placed on continuous media monitor. Imagining completed. Son at bedside. Plan of care ongoing.
[2024-07-31 01:19] LABS: Alanine Aminotransferase 17 U/L (0-31); Albumin Level 3.4 g/dL (3.5-5.0); Alkaline Phosphatase 55 U/L (39-117); Anion Gap 15 (12-20); Aspartate Amino Transferase 26 U/L (5-31); Bilirubin Total 0.3 mg/dL (0.0-1.0); Blood Urea Nitrogen 42 mg/dL (9-16); Calcium 8.9 mg/dL (8.4-10.2); Carbon Dioxide 24 mmol/L (22-29); Chloride 107 mmol/L (96-108); Creatinine Clr Calc Pharmacy 34.3; Estimated Glomerular Filt Rate 42; Glucose Random 165 mg/dL (60-115); Potassium 4.5 mmol/L (3.3-5.1); Sodium 141 mmol/L (135-145); Total Protein 5.5 g/dL (6.5-8.0)
[2024-07-31 01:26] LABS: Troponin-I High Sensitivity 9.6 ng/L (<3.5-17.0)
[2024-07-31] MEDS: iohexoL 350 MG/ML 100 ML INFUS..BTL 85 ML IV (01:31)
[2024-07-31 01:44] LABS: Influenza A PCR NEGATIVE (Negative); Influenza B PCR NEGATIVE (Negative); Resp Syncy Virus RNA Qual PCR NEGATIVE (Negative); SARS COV2 PCR INHOUSE NEGATIVE (Negative)
[2024-07-31 02:45] LABS: Hematocrit 27.6 % (37.0-47.0); Hemoglobin 9.4 g/dl (12.0-16.0); Mean Corpuscular HGB Conc 34.1 g/dl (31.0-35.0); Mean Corpuscular Hemoglobin 33.1 pg (27.0-33.0); Mean Corpuscular Volume 97.2 fL (80.0-98.0); Mean Platelet Volume 10.1 fL (9.4-12.3); Platelet Count 169 X10*3/uL (160-400); Red Blood Count 2.84 X10*6/uL (4.20-5.50); Red Cell Distribution Width 11.9 % (11.0-16.0); White Blood Count 7.7 X10*3/uL (4.8-10.8)
[2024-07-31 02:51] LABS: Prothrombin Time 11.1 SEC (10.9-12.4)
--- NOTE | 2024-07-31 02:59 | P.HPHOSP_ITS ---
History of Present Illness Date of Service: 07/31/24 Chief Complaint: Fall 89-year-old female with hypertension, HLD, GERD who presented to the hospital following a fall. While dressing today the patient sustained a fall from wrong footing and fell onto her right side. She did not hit her head and there was no loss of consciousness. She proceeded to functioning well the rest of the day including her birthday celebration, EMS assessed her at the time and deemed her condition and necessary for ED evaluation. Then around 11, she felt dizzy and had an episode of vomiting while on the toilet and her son who found her report that she was briefly unresponsive. ED eval: She has a large right flank area ecchymoses. CT of the nondisplaced right dorsal-lateral 10th, 11th, and 12th rib fractures, Right dorsal soft tissue hematoma; approaching 10 cm, Comminuted proximal right humerus fracture with likely re-injury given proximal lucencies. ECG shows LBBB, no prior. hemoglobin is 9.4 and hematocrit 27.6, no recent labs for comparaison. . Review of Systems 2 Review of Systems: Gen: no fever Resp: no sob, no cough CV: no chest, no CHÁVEZ, no leg edema GI: No n/v, no abd pain Neuro: No confusion Yes all other systems are reviewed and are negative [facility] Medical History GERD (gastroesophageal reflux disease) Hypercholesteremia Hypertension Family History Mother Cardiovascular disease Atrial fibrillation Father CHF (congestive heart failure) Sister Diabetes Surgical History H/O: hysterectomy Social History Household Members: None Housing: House Do you presently have visiting nurse or other home services: Yes Alcohol intake: current Alcohol intake frequency: holidays/special occasions only Alcohol type: wine Patient Tobacco Use Status: Never used Tobacco Smoked in Last 30 Days: No Use of substances other than those prescribed or required for medical reasons: No Currently Displaying Signs/Symptoms of Drug Intoxication Withdrawal: No Have you been hit, kicked, punched, or otherwise hurt by someone within the past year? If so, by whom?: No Do you feel safe in your current relationship?: No Current Relationship Is there a partner from a previous relationship who is making you feel unsafe now?: No Are you made to feel afraid or neglected: No Advance Directives: No Advance Directives Information Provided: Yes Do you have a plan to hurt others: No Plan Recently lost weight without trying: No Eating poorly because of decreased appetite: No Patient : No service: No Current occupational status: retired [employer] Allergies Allergy/AdvReac Type Severity Reaction Status Date / Time Sulfa (Sulfonamide AdvReac Intermediate GI UPSET Verified 07/31/24 01:13 Antibiotics) [SULFA (SULFONAMIDE ANTIBIOTICS)] Home Medications ?Medication ?Instructions ?Recorded ?Confirmed ?Last Taken ?Type omeprazole 20 mg capsule,delayed 20 mg PO MOWESA@0630 07/22/21 07/31/24 07/30/24 History release acetaminophen 650 mg 1,300 mg PO BID 07/31/24 07/31/24 07/30/24 History tablet,extended release atorvastatin 40 mg tablet 40 mg PO BEDTIME 07/31/24 07/31/24 Unknown History calcium carbonate 500 mg PO BID 07/31/24 07/31/24 07/30/24 History cholecalciferol (vitamin D3) 10 20 mcg PO DAILY 07/31/24 07/31/24 07/30/24 History mcg (400 unit) tablet (Vitamin D3) escitalopram oxalate 10 mg tablet 10 mg PO DAILY 07/31/24 07/31/24 07/30/24 History ketoconazole 2 % topical cream 1 appl topical BID PRN psoriasis 07/31/24 07/31/24 Unknown History magnesium oxide 400 mg (241.3 mg 400 mg PO DAILY 07/31/24 07/31/24 07/30/24 History magnesium) tablet nystatin 100,000 unit/gram topical 1 appl topical BID PRN Rash 07/31/24 07/31/24 Unknown History powder ramipril 10 mg capsule 10 mg PO BID 07/31/24 07/31/24 07/30/24 History tocilizumab 162 mg/0.9 mL 162 mg subcut Q2W 07/31/24 07/31/24 07/20/24 History subcutaneous pen injector (Actemra ACTPen) Physical Exam 2 Vital Signs and Narrative: Vital Signs: Last Vital Signs Temp 97.6 F 07/31/24 01:00 Pulse 78 07/31/24 01:00 Resp 19 07/31/24 01:00 BP 131/42 L 07/31/24 01:00 Pulse Ox 97 07/31/24 01:00 O2 Del Method Room Air 07/31/24 01:00 BMI result Body Mass Index 34.8 Const: Other: General: AO X 3, no acute distress Resp: CTA bilateral CVS: S1,S2,RRR GI: +BS, NT, no distention Skin: No rash, large echymosis of righ flank/back area Neuro: motor grossly intact Psych: appropriate affect Results Labs 08/01/24 09:04 07/31/24 05:15 Labs: Laboratory Results - last 24 hr 07/31/24 07/31/24 07/31/24 00:57 00:58 02:40 MCV 97.9 97.2 MCH 33.4 H 33.1 H MCHC 34.2 34.1 RDW 11.8 11.9 Plt Count 173 D 169 MPV 10.2 10.1 Immature Gran % (Auto) 0.1 Neut % (Auto) 75.7 H Lymph % (Auto) 16.4 L [place] % (Auto) 6.7 Eos % (Auto) 0.7 Baso % (Auto) 0.4 Lymph # (Auto) 1.2 [place] # (Auto) 0.5 Eos # (Auto) 0.1 Baso # (Auto) 0.0 Abs Immat Gran (auto) 0.01 Absolute Neuts (auto) 5.6 Absolute Nucleated RBC 0.000 0.000 Nucleated RBC % (auto) 0.0 0.0 PT 11.1 INR 1.0 Anion Gap 15 Estim Creat Clear Calc 34.3 Estimated GFR 42 Random Glucose 165 H Calcium 8.9 D Total Bilirubin 0.3 AST 26 ALT 17 Alkaline Phosphatase 55 Troponin I High Sens 9.6 Total Protein 5.5 L Albumin 3.4 L Influenza Type A (PCR) NEGATIVE Influenza Type B (PCR) NEGATIVE RSV RNA Qual (PCR) NEGATIVE SARS-CoV-2 RNA (RT-PCR) NEGATIVE Assessment and Plan (1) Gait abnormality: Status: Acute (2) Accidental fall: Status: Acute (3) Anemia: Status: Acute Plan 89/F with HTN, HLD, GERD here with a mechanical fall resulting in Right 10, 11 and 12 th rib fractures, acute blood loss anemia and possible right humerus fracture Mechanical Fall resulting in Right rib fractures (10-12) possible right humerus fracture Right dorsal echymosis Acute blood loss anemia d/t echymosis -Monitor H/H -PT eval -alarm security or surveillance monitor -Pain control, Incentive spiormetry -Outpatient ortho follow up -check orthostatic BP Episode of passing out briefly and vomitting on toilet -suspect vasovagal -ortho and alarm security or surveillance monitor LBBB--appear old HTN--resume home meds once verfified HLD--statin DVT propphylaxis--compression device Full code Quality Stroke Does the patient have a stroke diagnosis?: No VTE Prior VTE?: No VTE Risk Level:: Medical - moderate - high VTE Device Contraindication: N/A - Device Ordered VTE Drug Contraindication: Treatment Not Tolerated
[2024-07-31] MEDS: Lactated Ringers 1,000 ML 100 ML IVCONT (04:50)
[2024-07-31 05:40] LABS: MANUAL DIFF FLAG NO
[2024-07-31 05:42] LABS: Basophils Percent Auto 0.5 % (0-2); Eosinophils Percent Auto 0.6 % (0-4); Hematocrit 28.7 % (37.0-47.0); Hemoglobin 9.8 g/dl (12.0-16.0); Imm Gran Abs Auto 0.02 X10*3/uL (0.00-0.03); Imm Gran Pct Auto 0.3 % (0.0-0.4); Lymphocytes Absolute Auto 1.5 X10*3/uL (1.2-4.9); Lymphocytes Percent Auto 23.3 % (20-40); Mean Corpuscular HGB Conc 34.1 g/dl (31.0-35.0); Mean Corpuscular Hemoglobin 33.2 pg (27.0-33.0); Mean Corpuscular Volume 97.3 fL (80.0-98.0); Mean Platelet Volume 10.3 fL (9.4-12.3); Monocytes Absolute Auto 0.5 X10*3/uL (0.1-1.2); Monocytes Percent Auto 7.1 % (2-11); Neutrophils Absolute Auto 4.4 x10*3/uL (2.0-8.3); Neutrophils Percent Auto 68.2 % (45-73); Platelet Count 171 X10*3/uL (160-400); Red Blood Count 2.95 X10*6/uL (4.20-5.50); Red Cell Distribution Width 11.9 % (11.0-16.0); White Blood Count 6.5 X10*3/uL (4.8-10.8)
[2024-07-31 05:58] LABS: Anion Gap 11 (12-20); Blood Urea Nitrogen 39 mg/dL (9-16); Calcium 8.8 mg/dL (8.4-10.2); Carbon Dioxide 27 mmol/L (22-29); Chloride 107 mmol/L (96-108); Creatinine Clr Calc Pharmacy 40.7; Estimated Glomerular Filt Rate 51; Glucose Random 124 mg/dL (60-115); Potassium 5.1 mmol/L (3.3-5.1); Sodium 140 mmol/L (135-145)
--- NOTE | 2024-07-31 09:11 | PHA.MEDREC ---
Addendum entered by Dilcia Henry RPh 07/31/24 10:37: reviewed by [facility]. Original Note: Pharmacy Consult ? Medication Reconciliation Pharmacy has completed the medication reconciliation. Spoke to pt, pt's son, and used med list brought from home to confirm meds. Per pt, still using ketoconazole and nystatin PRN.
[2024-07-31] MEDS: Acetaminophen 325 MG TABLET 650 MG PO (10:16)
--- NOTE | 2024-07-31 11:31 | PM.EVENT ---
Event Note Date of Service: 07/31/24 Event Note: X-rays of the right shoulder obtained Appears to be a right proximal humerus fracture chronic in nature Sling if needed for pain Encourage gentle ROM of elbow hand and wrist if sling is placed Can f/u out patient No additional orthopedic intervention needed at this time Time Spent With Patient Time: Total time managing care of this patient today ____ minutes.
--- NOTE | 2024-07-31 11:55 | HO.PM.IMPN ---
Subjective Subjective Date of Service: 07/31/24 Interval History: Seen and examined this morning Follow-up for rib fractures, flank hematoma Patient awake, alert, in no acute distress while at rest. She reports pain in her right side with movement no dizziness, no sob, no chest pain; no abdominal pain Review of Systems Review of Systems: Yes all other systems are reviewed and are negative Constitutional Constitutional: Denies chills and Denies fever(s) Cardiovascular Cardiovascular: Denies chest pain, Denies palpitations and Denies dyspnea Respiratory Respiratory: Denies cough and Denies dyspnea Gastrointestinal Gastrointestinal: Denies abdominal pain, Denies nausea and Denies vomiting Endocrine Endocrine: Denies palpitations Physical Exam Vital Signs: Vital Signs: Last Vital Signs Temp 97.5 F 07/31/24 11:08 Pulse 83 07/31/24 11:08 Resp 18 07/31/24 11:08 BP 133/64 07/31/24 11:08 Pulse Ox 98 07/31/24 11:08 O2 Del Method Room Air 07/31/24 11:08 BMI result Body Mass Index 35.3 Const: General: cooperative, comfortable, no acute distress, alert and awake Nutritional Appearance: overweight Orientation/consciousness: patient oriented x3 Resp: Effort & Inspection: normal respiratory effort, able to speak in complete sentences, no respiratory distress and no use of accessory muscles Auscultation: clear to auscultation bilaterally Cardio: Rate: regular rate GI: Other: no guarding no rebound Inspection: No distended Palpation (GI): Soft to palpation and nontender Skin: Other: large right flank hematoma Neuro: General: patient oriented x3 Extrem: General: Yes no pedal edema Objective Data Active Medications Acetaminophen (Acetaminophen 325 Mg Tablet) 975 mg PO Q8H PRN PRN Reason: Pain, Mild 1-3,fever,headache Al Hydroxide/Mg Hydroxide (Magnesium Hydrox/Alum Hydrox 30 Ml Oral.Susp) 30 ml PO Q4H PRN PRN Reason: Heartburn Atorvastatin Calcium (Atorvastatin Calcium 40 Mg Tablet) 40 mg PO BEDTIME SAÚL Calcium Carbonate (Calcium Carbonate 750 Mg Tab.Chew) 750 mg PO Q4H PRN PRN Reason: Heartburn Calcium Carbonate (Calcium Oyster Shell Elemental 500 Mg Tablet) 500 mg PO BID SAÚL Clotrimazole (Clotrimazole 1 % Cream 15 Gm Tube) 1 appl TOPICAL BID PRN PRN Reason: psoriasis Escitalopram Oxalate (Escitalopram Oxalate 10 Mg Tablet) 10 mg PO DAILY [facility] Lactated Ringer's (Lr) 1,000 mls @ 100 mls/hr IVCONT .Q10H [facility] Last Admin: 07/31/24 04:50 Dose: 100 mls/hr Documented By: SHANELLE Lisinopril (Lisinopril 40 Mg Tablet) 40 mg PO BID [facility] Magnesium Hydroxide (Milk Of Magnesia 30 Ml Oral.Susp) 30 ml PO DAILY PRN PRN Reason: Constipation Magnesium Oxide (Magnesium Oxide 400 Mg Tablet) 400 mg PO DAILY [facility] Melatonin (Melatonin 3 Mg Tablet) 6 mg PO BEDTIME PRN PRN Reason: Insomnia Nystatin (Nystatin Powder 15 Gm Bottle) 1 appl TOPICAL BID PRN; Protocol PRN Reason: Rash Omeprazole (Omeprazole 20 Mg Capsule.Dr) 20 mg PO MOWESA@0630 [facility] Ondansetron HCl (Ondansetron Hcl 4 Mg/2 Ml Vial) 4 mg IVPUSH Q8H PRN PRN Reason: Nausea and Vomiting Polyethylene Glycol (Polyethylene Glycol 3350 17 Gm Powd.Pack) 17 gm PO DAILY PRN PRN Reason: Constipation Sodium Chloride (0.9 % Sodium Chloride Flush 3 Ml Syringe) 3 ml IVFLUSH QSHIFT [facility] Vitamin D (Cholecalciferol (Vitamin D3) 10 Mcg Tablet) 20 mcg PO DAILY [facility] Labs 07/31/24 05:15 07/31/24 05:15 Labs: Laboratory Results - last 24 hr 07/31/24 07/31/24 07/31/24 00:57 00:58 02:40 MCV 97.9 97.2 MCH 33.4 H 33.1 H MCHC 34.2 34.1 RDW 11.8 11.9 Plt Count 173 D 169 MPV 10.2 10.1 Immature Gran % (Auto) 0.1 Neut % (Auto) 75.7 H Lymph % (Auto) 16.4 L [place] % (Auto) 6.7 Eos % (Auto) 0.7 Baso % (Auto) 0.4 Lymph # (Auto) 1.2 [place] # (Auto) 0.5 Eos # (Auto) 0.1 Baso # (Auto) 0.0 Abs Immat Gran (auto) 0.01 Absolute Neuts (auto) 5.6 Absolute Nucleated RBC 0.000 0.000 Nucleated RBC % (auto) 0.0 0.0 PT 11.1 INR 1.0 Anion Gap 15 Estim Creat Clear Calc 34.3 Estimated GFR 42 Random Glucose 165 H Calcium 8.9 D Total Bilirubin 0.3 AST 26 ALT 17 Alkaline Phosphatase 55 Troponin I High Sens 9.6 Total Protein 5.5 L Albumin 3.4 L Influenza Type A (PCR) NEGATIVE Influenza Type B (PCR) NEGATIVE RSV RNA Qual (PCR) NEGATIVE SARS-CoV-2 RNA (RT-PCR) NEGATIVE 07/31/24 05:15 MCV 97.3 MCH 33.2 H MCHC 34.1 RDW 11.9 Plt Count 171 MPV 10.3 Immature Gran % (Auto) 0.3 Neut % (Auto) 68.2 Lymph % (Auto) 23.3 [place] % (Auto) 7.1 Eos % (Auto) 0.6 Baso % (Auto) 0.5 Lymph # (Auto) 1.5 [place] # (Auto) 0.5 Eos # (Auto) 0.0 Baso # (Auto) 0.0 Abs Immat Gran (auto) 0.02 Absolute Neuts (auto) 4.4 Absolute Nucleated RBC 0.000 Nucleated RBC % (auto) 0.0 PT INR Anion Gap 11 L Estim Creat Clear Calc 40.7 Estimated GFR 51 Random Glucose 124 H Calcium 8.8 Total Bilirubin AST ALT Alkaline Phosphatase Troponin I High Sens Total Protein Albumin Influenza Type A (PCR) Influenza Type B (PCR) RSV RNA Qual (PCR) SARS-CoV-2 RNA (RT-PCR) Assessment and Plan (1) Hematoma and contusion: Status: Acute (2) Closed rib fracture: Status: Acute (3) Anemia: Status: Acute Plan 89/F with HTN, HLD, GERD here with a mechanical fall resulting in Right 10, 11 and 12 th rib fractures, acute blood loss anemia and possible right humerus fracture Mechanical Fall resulting in Right rib fractures (10-12), possible right humerus fracture, Right flank hematoma Seen by Orthopedic surgery-feels right humeral fracture is chronic, can use sling for comfort p.r.n. PT eval pending Pain control (pt declines narcotic pain control, prefers tylenol), Incentive spirometry episode of unresponsiveness on the toilet orthostatic bp negative continue tele monitoring Acute blood loss anemia d/t traumatic right flank hematoma H/H stable overnight, follow CBC HTN- Continue lisinopril HLD--statin Mood Continue Lexapro Constipation Seen on imaging. pt denies abdominal pain, no abdominal distention on exam Bowel regimen DVT prophylaxis--compression device due to hematoma/anemia Full code Quality Stroke Does the patient have a stroke diagnosis?: No VTE Prior VTE?: No VTE Risk Level:: Medical - moderate - high VTE Device Contraindication: N/A - Device Ordered VTE Drug Contraindication: Treatment Not Tolerated
[2024-07-31 12:49] LABS: Appearance Urine Clear; Color Urine Yellow; Glucose Urine UA Negative (Negative); Leukocyte Esterase Urine Trace (Negative); Nitrite Urine Negative (Negative); PH 5.5 (5.0-9.0); Specific Gravity - Urine >= 1.030 (1.005-1.025); UMIC TRIGGER UACC YES; Urine Blood Negative (Negative); Urine Ketones Negative (Negative); Urine Protein Negative (Neg-Trace)
[2024-07-31 12:51] LABS: Bacteria Urine None Seen (None Seen); Hyaline Casts Urine 0-2 /LPF (0-2); RBC Urine 0-2 /HPF (0-2); Squamous Epithelial Cell Urine 0-2 /HPF (0-2); WBC Urine 0-5 /HPF (0-5)
[2024-07-31] MEDS: Escitalopram Oxalate 10 MG TABLET PO (13:19)
[2024-07-31] MEDS: 0.9 % Sodium Chloride Flush 3 ML SYRINGE IVFLUSH ×2 (13:19→22:31)
--- NOTE | 2024-07-31 16:51 | MHC.CM.PN ---
Maciel 07/31/24, Pt lives alone and has private home care daily: 3 hrs in the am and 3 hrs in the evening from [facility]. HCP is her dtr Guadalupe, copy requested. For DME, she has: walker, grab bars, over the toilet commodes, stair lift. Pt has been to [facility] in the past for AR, she has been to [facility]. skilled for STR and did not like it. Family has informed CM that pt is not safe to go home directly from hosp. they would like her to go to rehab. CM explained that she is here under OBS, so Medicare won't cover unless inpt for 3 nights. Pt has LTC ins. CM advised that they look at policy, it may have SNF coverage. CM to follow for DC needs. Pt.s [facility] choice for STR [facility]: [facility].
[2024-07-31] MEDS: Atorvastatin Calcium 40 MG TABLET PO (22:31)
[2024-07-31] MEDS: Acetaminophen 325 MG TABLET 975 MG PO (22:31)
[2024-07-31] MEDS: Calcium Oyster Shell Elemental 500 MG TABLET PO (22:31)
[2024-08-01] VITALS (7 sets, daily range): BP systolic 112–156; BP diastolic 56–67; PULSE 75–91; RESP 18–20; TEMP 36.3–36.9; O2SAT 97–100
--- NOTE | 2024-08-01 06:33 | PC.NURSE ---
patient refusing labs this am, aware
[2024-08-01] MEDS: Omeprazole 20 MG CAPSULE.DR PO (06:35)
--- NOTE | 2024-08-01 07:00 | CA_ITS ---
Transthoracic Echocardiogram Patient (Last, First, Middle): Bindu Driscoll A Gender: Female Date of : 1935 Age: 89 Procedure Date: 08/01/2024 Procedure Type: Transthoracic Echocardiogram Location: [facility] Height: 160.02 cm Weight: 90.27 kg BSA: 1.93 m2 Heart Rate: bpm BP: 155 / 67 mmHg Powder Hand: ROSA MARIA Sexton MD: Breann NORRIS [employer] Merchandiser: Saravanan Arita MD Symptoms: new LBBB;fall Study Quality: Adequate ECG Rhythm: Sinus Conclusions: - 1. Low normal LV ejection fraction 50-55% with mild LVH with impaired relaxation filling pattern 2. Normal cardiac valvular Dopplers 3. No gross pericardial effusion Findings Left Ventricle Normal left ventricular cavity size. There is mildly increased left ventricular wall thickness. The left ventricular systolic function is low normal. The visually estimated ejection fraction is between 50-55%. There is paradoxical septal motion consistent with a left bundle branch block. Spectral Doppler is indicative of an impaired relaxation filling pattern. E/E prime ratio is between 8 and 15 consistent with indeterminate filling pressures. Right Ventricle Normal right ventricular cavity size and systolic function. Atria The left atrium is likely dilated. There is lipomatous hypertrophy of the interatrial septum. There is no evidence of interatrial shunt. The right atrium is normal in size. Aortic Valve The aortic valve structure and function is likely normal. There is no aortic valve stenosis. There is no aortic valve regurgitation. Mitral Valve There is mild anterior and posterior mitral leaflet thickening. There is trace mitral valve regurgitation. There is no mitral valve stenosis. Pulmonic Valve The pulmonic valve was not well visualized. Tricuspid Valve Likely normal tricuspid valve structure and function. Tricuspid regurgitation envelope is inadequate for calculation of right ventricular systolic pressure. Normal right atrial pressure. Great Vessels The pulmonary artery was not well visualized. There is no dilatation of the ascending aorta measuring 3.30 cm. Venous The inferior vena cava is normal in size and collapses greater than 50% with inspiration. Pericardium/Pleural There is no evidence of pericardial effusion. Prior Study Comparison No significant change compared to prior study dated: 09/11/2021. Measurements 2D Linear Measurements IVSd: 1.21 0.6-0.9/0.6-1.0 cm LVIDd: 3.82 3.9-5.3/4.2-5.9 cm LVIDd Index: 1.98 2.4-3.2/2.2-3.1 cm/m2 LVIDs: 2.55 2.0-3.6 cm LVPWd: 1.25 0.7-1.1 cm LA Diam: 3.60 2.7-3.8/3.0-4.0 cm LAIDs Index: 1.87 1.5-2.3 cm/m2 LV Mass: 199.61 67-162/88-224 g LV Mass Index: 103.42 43-95/49-115 g/m2 LVOT Diam: 2.10 3.0+(-)1.3 cm 2D Systolic Function EF 4C: 52.10 >55% EF 2C: 48.70 >55% EF BiP: 50.80 >55% Mitral Valve MV Pk E: 1.02 MV PK A: 1.33 MV Decel Time: 144.00 E/A: 0.80 E'Lateral: 5.87 E'Medial: 6.64 E/E' Med: 15.40 E/E' Lat: 17.40 PHT: 42.00 MVA PHT: 5.24 Decel Marin: 7.09 Aortic Valve AoV Pk Bob: 1.81 AoV Mn Bob: 1.28 AoV VTI: 0.42 AoV Pk Grad: 13.00 Aov Mn Grad: 7.00 GROVER Cont.VTI: 1.97 LVOT LVOT Pk Bob: 0.94 LVOT Mn Bob: 0.67 LVOT VTI: 0.24 LVOT Pk Grad: 4.00 LVOT Mn Grad: 2.00 LVOT Diam: 2.10 LVOT Area: 3.46 Diastolic Function MV Pk E: 1.02 MV Pk A: 1.33 E/A: 0.80 E'Medial: 6.64 E/E' Med: 15.40 E' Laterial: 5.87 E/E' Lat: 17.40 Right Ventricle TAPSE (mm): 25.40 TVS' Bob: 13.10 Tricuspid Valve TR Pk Bob: 2.07 TR Pk Grad: 17.00 Great Vessels Aorta Sinus of Valsalva: 3.10 2.0-3.5 cm Ao Asc: 3.30 2.1-3.4 cm Pulmonary Valve PV Pk Bob: 1.37 Peak PV Grad: 8.00 Updated in Other Vendor System with Status of Final Saravanan Arita MD electronically signed on 08/01/2024 11:31:25 AM with status of Final
[2024-08-01] MEDS: Escitalopram Oxalate 10 MG TABLET PO (08:54)
[2024-08-01] MEDS: Magnesium Oxide 400 MG TABLET PO (08:54)
[2024-08-01] MEDS: Cholecalciferol (Vitamin D3) 10 MCG TABLET 20 MCG PO (08:54)
[2024-08-01] MEDS: lisinopriL 40 MG TABLET PO ×2 (08:54→21:10)
[2024-08-01] MEDS: polyethylene glycoL 3350 17 GM POWD.PACK PO (08:55)
[2024-08-01] MEDS: 0.9 % Sodium Chloride Flush 3 ML SYRINGE IVFLUSH ×2 (08:55→21:12)
[2024-08-01] MEDS: Calcium Oyster Shell Elemental 500 MG TABLET PO ×2 (09:00→21:10)
[2024-08-01 09:28] LABS: Hematocrit 26.9 % (37.0-47.0); Hemoglobin 9.1 g/dl (12.0-16.0)
--- NOTE | 2024-08-01 11:18 | HO.PM.IMPN ---
Subjective Subjective Date of Service: 08/01/24 Interval History: Seen and examined this morning Follow-up for rib fractures, flank hematoma has generalized aches and pain, no acute issues, no arrytmia, h/h stable Physical Exam Vital Signs: Vital Signs: Last Vital Signs Temp 97.4 F 08/01/24 08:00 Pulse 83 08/01/24 08:00 Resp 20 08/01/24 08:00 BP 156/66 H 08/01/24 08:00 Pulse Ox 99 08/01/24 08:00 O2 Del Method Oxymask 08/01/24 08:00 O2 Flow Rate 3 08/01/24 08:00 BMI result Body Mass Index 35.3 Const: Other: General: AO X 3, no acute distress Resp: CTA bilateral CVS: S1,S2,RRR GI: +BS, NT, no distention Skin: see pic Neuro: motor grossly intact Psych: appropriate affect Skin: Other: large right flank hematoma Objective Data Active Medications Acetaminophen (Acetaminophen 325 Mg Tablet) 975 mg PO Q8H PRN PRN Reason: Pain, Mild 1-3,fever,headache Last Admin: 07/31/24 22:31 Dose: 975 mg Documented By: ASTRID Al Hydroxide/Mg Hydroxide (Magnesium Hydrox/Alum Hydrox 30 Ml Oral.Susp) 30 ml PO Q4H PRN PRN Reason: Heartburn Atorvastatin Calcium (Atorvastatin Calcium 40 Mg Tablet) 40 mg PO BEDTIME [facility] [place] Last Admin: 07/31/24 22:31 Dose: 40 mg Documented By: ASTRID Calcium Carbonate (Calcium Carbonate 750 Mg Tab.Chew) 750 mg PO Q4H PRN PRN Reason: Heartburn Calcium Carbonate (Calcium Oyster Shell Elemental 500 Mg Tablet) 500 mg PO BID [facility] [place] [place] Last Admin: 08/01/24 09:00 Dose: 500 mg Documented By: NUNU Clotrimazole (Clotrimazole 1 % Cream 15 Gm Tube) 1 appl TOPICAL BID PRN PRN Reason: psoriasis Docusate Sodium (Docusate Sodium 100 Mg Capsule) 100 mg PO BEDTIME [facility] [place] Last Admin: 07/31/24 22:30 Dose: Not Given Documented By: ASTRID Non-Admin Reason: Patient Refused Escitalopram Oxalate (Escitalopram Oxalate 10 Mg Tablet) 10 mg PO DAILY [facility] [place] Last Admin: 08/01/24 08:54 Dose: 10 mg Documented By: NUNU Lisinopril (Lisinopril 40 Mg Tablet) 40 mg PO BID [facility] [place] Last Admin: 08/01/24 08:54 Dose: 40 mg Documented By: NUNU Magnesium Hydroxide (Milk Of Magnesia 30 Ml Oral.Susp) 30 ml PO DAILY PRN PRN Reason: Constipation Magnesium Oxide (Magnesium Oxide 400 Mg Tablet) 400 mg PO DAILY [facility] [place] Last Admin: 08/01/24 08:54 Dose: 400 mg Documented By: NUNU Melatonin (Melatonin 3 Mg Tablet) 6 mg PO BEDTIME PRN PRN Reason: Insomnia Nystatin (Nystatin Powder 15 Gm Bottle) 1 appl TOPICAL BID PRN; Protocol PRN Reason: Rash Omeprazole (Omeprazole 20 Mg Capsule.Dr) 20 mg PO MOWESA@0630 [facility] [place] Last Admin: 08/01/24 06:35 Dose: 20 mg Documented By: ASTRID Ondansetron HCl (Ondansetron Hcl 4 Mg/2 Ml Vial) 4 mg IVPUSH Q8H PRN PRN Reason: Nausea and Vomiting Polyethylene Glycol (Polyethylene Glycol 3350 17 Gm Powd.Pack) 17 gm PO DAILY [facility] [place] Last Admin: 08/01/24 08:55 Dose: 17 gm Documented By: NUNU Sodium Chloride (0.9 % Sodium Chloride Flush 3 Ml Syringe) 3 ml IVFLUSH QSHIFT [facility] [place] Last Admin: 08/01/24 08:55 Dose: 3 ml Documented By: NUNU Vitamin D (Cholecalciferol (Vitamin D3) 10 Mcg Tablet) 20 mcg PO DAILY [facility] [place] Last Admin: 08/01/24 08:54 Dose: 20 mcg Documented By: NUNU Labs 08/01/24 09:04 07/31/24 05:15 Labs: Laboratory Results - last 24 hr 07/31/24 12:38 Urine Color Yellow Urine Appearance Clear Urine pH 5.5 Ur Specific [place] >= 1.030 H Urine Protein Negative Urine Glucose (UA) Negative Urine Ketones Negative Urine Blood Negative Urine Nitrite Negative Ur Leukocyte Esterase Trace H Urine RBC 0-2 Urine WBC 0-5 Ur Squamous Epith Cells 0-2 Urine Bacteria None Seen Hyaline Casts 0-2 Assessment and Plan (1) Closed rib fracture: Status: Acute (2) Hematoma and contusion: Status: Acute (3) Anemia: Status: Acute Plan 89/F with HTN, HLD, GERD here with a mechanical fall resulting in Right 10, 11 and 12 th rib fractures, acute blood loss anemia and possible right humerus fracture Mechanical Fall resulting in Right rib fractures (10-12) possible right humerus fracture Right dorsal echymosis Acute blood loss anemia d/t echymosis -H/H stable, no indication for transfusion, add iron -PT/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
[2024-08-01] MEDS: Ferrous Sulfate 300 MG/5 ML LIQUID PO (12:16)
--- NOTE | 2024-08-01 12:23 | P.CONCA_ITS ---
History of Present Illness History of Present Illness Date of Service: 08/01/24 Requesting physician: Wilbur Otero Consult reason: other (Syncope) Chief complaint: Fall, Rule Syncope Narrative: I was consulted to see Bindu in cardiology consultation today as she presented with syncopal episode. History was obtained with help of for patient and patient's [id number] son who were present at bedside. Patient is a pleasant 89-year-old female with prior history of hypertension, gait instability and osteoarthritis. Patient said she had an accidental fall on Thursday while her family was visiting for the holiday season and her birthday. Patient was constantly aware when she was falling. She had some pain in the right thoracic area, EMS was called. The initial evaluation revealed mild red rodriguez over the right thoracic cavity and was determine to keep her at home. This happened in the early evening hours around 16:00. Around midnight son who was living with the patient as he was visiting notice that the fossa in the bathroom was going on and he went to check on his mother. With no response he went to the bathroom and noted that she was sitting on the commode and was unconscious. She was pale with vomiting. He got concerned and called out her name many times. 911 was called again and patient recovered consciousness quickly. There were no seizure-like activities. Patient was then brought to the emergency room. Here she was noted to have a drop in his hematocrit compared to 2021 where it was 12.8, currently is 9.6 without any further drop since been there. She has notice some pain at the right side of her chest and a large bruise. Overnight was noted to have low oxygen as noted to possibly have sleep apnea. EKG was noted to have left bundle-branch block and cardiology consult was sought for further management plan. She had a workup done about 2 years ago question for abnormal EKG, patient not aware. At that time the workup was within normal limits including myocardial perfusion imaging which showed normal myocardial perfusion as his echocardiogram showed normal LV ejection fraction. She has had falls for many times before, last fall was a year ago. Since then she has had physical therapy and has been more careful and has not had any other falls. Review of Systems 2 Constitutional: Constitutional: Reports frequent falls (In the past more than a year ago) and Reports weakness Eyes: Eyes: Reports loss of peripheral vision Cardiovascular: Cardiovascular: Reports no additional cardiovascular complaints Respiratory: Respiratory: Reports other (Right-sided thoracic cage pain with deep breathing) Gastrointestinal: Gastrointestinal: Reports no additional gastrointestinal complaints Genitourinary: Genitourinary: Reports no additional female genitourinary complaints Musculoskeletal: Musculoskeletal: Reports no additional musculoskeletal complaints Integumentary/Breasts: Skin/Breast: Reports system reviewed and no additional complaints, except as docu Neurologic: Reports frequent falls (In the past more than a year ago) and Reports weakness Psychiatric: Psychiatric: Reports no additional psychiatric complaints [facility] Past Medical History Medical History GERD (gastroesophageal reflux disease) Hypercholesteremia Hypertension Family History Family History Mother Cardiovascular disease Atrial fibrillation Father CHF (congestive heart failure) Sister Diabetes Surgical History Surgical History H/O: hysterectomy Social History Social History Household Members: None Housing: House Do you presently have visiting nurse or other home services: Yes Alcohol intake: current Alcohol intake frequency: holidays/special occasions only Alcohol type: wine Patient Tobacco Use Status: Never used Tobacco Smoked in Last 30 Days: No Use of substances other than those prescribed or required for medical reasons: No Currently Displaying Signs/Symptoms of Drug Intoxication Withdrawal: No Have you been hit, kicked, punched, or otherwise hurt by someone within the past year? If so, by whom?: No Do you feel safe in your current relationship?: No Current Relationship Is there a partner from a previous relationship who is making you feel unsafe now?: No Are you made to feel afraid or neglected: No Advance Directives: No Advance Directives Information Provided: Yes Do you have a plan to hurt others: No Plan Recently lost weight without trying: No Eating poorly because of decreased appetite: No Patient : No service: No Current occupational status: retired Meds Allergies Allergy/AdvReac Type Severity Reaction Status Date / Time Sulfa (Sulfonamide AdvReac Intermediate GI UPSET Verified 07/31/24 01:13 Antibiotics) [SULFA (SULFONAMIDE ANTIBIOTICS)] Active Medications: Current Medications Acetaminophen (Acetaminophen 325 Mg Tablet) 975 mg PO Q8H PRN PRN Reason: Pain, Mild 1-3,fever,headache Last Admin: 07/31/24 22:31 Dose: 975 mg Al Hydroxide/Mg Hydroxide (Magnesium Hydrox/Alum Hydrox 30 Ml Oral.Susp) 30 ml PO Q4H PRN PRN Reason: Heartburn Atorvastatin Calcium (Atorvastatin Calcium 40 Mg Tablet) 40 mg PO BEDTIME [facility] [place] Last Admin: 07/31/24 22:31 Dose: 40 mg Calcium Carbonate (Calcium Carbonate 750 Mg Tab.Chew) 750 mg PO Q4H PRN PRN Reason: Heartburn Calcium Carbonate (Calcium Oyster Shell Elemental 500 Mg Tablet) 500 mg PO BID [facility] Last Admin: 08/01/24 09:00 Dose: 500 mg Clotrimazole (Clotrimazole 1 % Cream 15 Gm Tube) 1 appl TOPICAL BID PRN PRN Reason: psoriasis Docusate Sodium (Docusate Sodium 100 Mg Capsule) 100 mg PO BEDTIME [facility] Last Admin: 07/31/24 22:30 Dose: Not Given Escitalopram Oxalate (Escitalopram Oxalate 10 Mg Tablet) 10 mg PO DAILY [facility] [place] Last Admin: 08/01/24 08:54 Dose: 10 mg Ferrous Sulfate (Ferrous Sulfate 300 Mg/5 Ml Liquid) 300 mg PO DAILY [facility] [place] Last Admin: 08/01/24 12:16 Dose: 300 mg Lisinopril (Lisinopril 40 Mg Tablet) 40 mg PO BID [facility] Last Admin: 08/01/24 08:54 Dose: 40 mg Magnesium Hydroxide (Milk Of Magnesia 30 Ml Oral.Susp) 30 ml PO DAILY PRN PRN Reason: Constipation Magnesium Oxide (Magnesium Oxide 400 Mg Tablet) 400 mg PO DAILY [facility] Last Admin: 08/01/24 08:54 Dose: 400 mg Melatonin (Melatonin 3 Mg Tablet) 6 mg PO BEDTIME PRN PRN Reason: Insomnia Nystatin (Nystatin Powder 15 Gm Bottle) 1 appl TOPICAL BID PRN; Protocol PRN Reason: Rash Omeprazole (Omeprazole 20 Mg Capsule.Dr) 20 mg PO MOWESA@30 [facility] [place] Last Admin: 08/01/24 06:35 Dose: 20 mg Ondansetron HCl (Ondansetron Hcl 4 Mg/2 Ml Vial) 4 mg IVPUSH Q8H PRN PRN Reason: Nausea and Vomiting Polyethylene Glycol (Polyethylene Glycol 3350 17 Gm Powd.Pack) 17 gm PO DAILY [facility] [place] Last Admin: 08/01/24 08:55 Dose: 17 gm Sodium Chloride (0.9 % Sodium Chloride Flush 3 Ml Syringe) 3 ml IVFLUSH QSHIFT [facility] Last Admin: 08/01/24 08:55 Dose: 3 ml Vitamin D (Cholecalciferol (Vitamin D3) 10 Mcg Tablet) 20 mcg PO DAILY [facility] Last Admin: 08/01/24 08:54 Dose: 20 mcg Home Medications ?Medication ?Instructions ?Recorded ?Confirmed ?Last Taken ?Type omeprazole 20 mg capsule,delayed 20 mg PO MOWESA@0630 07/22/21 07/31/24 07/30/24 History release acetaminophen 650 mg 1,300 mg PO BID 07/31/24 07/31/24 07/30/24 History tablet,extended release atorvastatin 40 mg tablet 40 mg PO BEDTIME 07/31/24 07/31/24 Unknown History calcium carbonate 500 mg PO BID 07/31/24 07/31/24 07/30/24 History cholecalciferol (vitamin D3) 10 20 mcg PO DAILY 07/31/24 07/31/24 07/30/24 History mcg (400 unit) tablet (Vitamin D3) escitalopram oxalate 10 mg tablet 10 mg PO DAILY 07/31/24 07/31/24 07/30/24 History ketoconazole 2 % topical cream 1 appl topical BID PRN psoriasis 07/31/24 07/31/24 Unknown History magnesium oxide 400 mg (241.3 mg 400 mg PO DAILY 07/31/24 07/31/24 07/30/24 History magnesium) tablet nystatin 100,000 unit/gram topical 1 appl topical BID PRN Rash 07/31/24 07/31/24 Unknown History powder ramipril 10 mg capsule 10 mg PO BID 07/31/24 07/31/24 07/30/24 History tocilizumab 162 mg/0.9 mL 162 mg subcut Q2W 07/31/24 07/31/24 07/20/24 History subcutaneous pen injector (Actemra ACTPen) Physical Exam 2 Vital Signs: Vital Signs: Last Vital Signs Temp 98.2 F 08/01/24 12:00 Pulse 78 08/01/24 12:00 Resp 20 08/01/24 12:00 BP 112/56 L 08/01/24 12:00 Pulse Ox 97 08/01/24 12:00 O2 Del Method Room Air 08/01/24 12:00 O2 Flow Rate 3 08/01/24 08:00 BMI result Body Mass Index 35.3 Const: General: cooperative, comfortable, no acute distress, alert and awake Nutritional Appearance: obese Orientation/consciousness: patient oriented x3 HEENT: Head: Yes normocephalic and Yes atraumatic Neck: Neck: Yes trachea midline, Yes supple and Yes no JVD Resp: Effort & Inspection: decreased respiratory effort Auscultation: clear to auscultation bilaterally Cardio: Jugular venous distension: no JVD Rate: regular rate Rhythm: r egular rhythm Heart sounds: S1 normal heart sound present, S2 normal heart sound present, no click, no gallops and no murmurs GI: Auscultation: normal bowel sounds Skin: General skin exam: no rashes or lesions noted Neuro: General: patient oriented x3 and no focal motor deficits Extrem: General: Yes no clubbing, cyanosis or edema Psych: Appearance: grossly normal Objective Labs and Meds 08/01/24 09:04 07/31/24 05:15 Lab results: Laboratory Results - last 24 hr 07/31/24 08/01/24 12:38 09:04 Hgb 9.1 L Hct 26.9 L Urine Color Yellow Urine Appearance Clear Urine pH 5.5 Ur Specific [place] >= 1.030 H Urine Protein Negative Urine Glucose (UA) Negative Urine Ketones Negative Urine Blood Negative Urine Nitrite Negative Ur Leukocyte Esterase Trace H Urine RBC 0-2 Urine WBC 0-5 Ur Squamous Epith Cells 0-2 Urine Bacteria None Seen Hyaline Casts 0-2 Assessment and Plan (1) Syncope: Status: Acute Syncopal episode noted by the son who found his mother on the commode would passed out and was pale. She was said a recent fall and a large bruise in the right thoracic cage and noted by workup drop in hematocrit but which is stable along with the left bundle-branch block. No overnight arrhythmias have been noted. Her syncopal episode appears to be vasovagal/orthostatic from loss of blood volume. Admission she had no significant orthostatic hypotension. At this point time discussed that her syncopal episode appears to be more related to loss of blood as well as pain. At this point time no additional workup is indicated inpatient. Her echocardiogram shows preserved LV ejection fraction. Will follow-up with outpatient cardiac event monitor. Treatment of acute blood loss anemia with iron therapy. Follow-up hemoglobin hematocrit in near future. (2) Left bundle branch block: Status: Acute Left bundle-branch block, unclear duration. Although echocardiogram shows low normal EF. Likelihood of this related to left bundle-branch block is extremely low. Follow-up with event monitor as above. Patient can be discharged from cardiac perspective. Follow-up in 6 weeks Procedures Date of Service Date of Service: 08/01/24
--- NOTE | 2024-08-01 13:16 | MHC.CM.PN ---
EMR REVIEWED, CM MET W/PT AND FAMILY AT BEDSIDE, GOAL IS FOR ACUTE REHB W/[facility] PREFERRED AND [facility] SECOND CHOICE, [facility] DECLINING PT THEY DON'T FEEL PT'S INSURANCE WILL GIVE AUTH HOWEVER [facility] SUBMITTING FOR AUTH, SNF REFERRAL ALSO OPENED PT'S PRIMARY IS BLUE CROSS FED, CM WILL CONT TO FOLLOW.
[2024-08-01] MEDS: Acetaminophen 325 MG TABLET 975 MG PO (21:09)
[2024-08-01] MEDS: Atorvastatin Calcium 40 MG TABLET PO (21:10)
[2024-08-02] VITALS: BP 140/49; PULSE 79; RESP 16; TEMP 36.3; O2SAT 98
[2024-08-02 00:06] VITALS: BP 140/65; O2SAT 98
[2024-08-02 03:41] VITALS: BP 142/48; PULSE 82; RESP 16; TEMP 36.3; O2SAT 94
--- NOTE | 2024-08-02 05:15 | PC.RT ---
pt had overnight oximetry. pt episodes of desat 68.5 minutes of sats <88%. pt will require o2 at night will discuss with [employer] and hospitalist today for discharge diagnosis for home 02.
[2024-08-02] MEDS: Calcium Oyster Shell Elemental 500 MG TABLET PO (07:50)
[2024-08-02] MEDS: Escitalopram Oxalate 10 MG TABLET PO (07:50)
[2024-08-02] MEDS: Ferrous Sulfate 300 MG/5 ML LIQUID PO (07:50)
[2024-08-02] MEDS: lisinopriL 40 MG TABLET PO (07:50)
[2024-08-02] MEDS: Magnesium Oxide 400 MG TABLET PO (07:50)
[2024-08-02] MEDS: 0.9 % Sodium Chloride Flush 3 ML SYRINGE IVFLUSH (07:51)
[2024-08-02] MEDS: polyethylene glycoL 3350 17 GM POWD.PACK PO (07:51)
[2024-08-02] MEDS: Cholecalciferol (Vitamin D3) 10 MCG TABLET 20 MCG PO (07:51)
[2024-08-02 08:00] VITALS: BP 159/71; PULSE 86; RESP 14; TEMP 36.6; O2SAT 100
--- NOTE | 2024-08-02 11:37 | PM.DS ---
DS: Providers Provider Date of Service: 08/02/24 Date of admission: 07/31/24 03:35 Date of discharge: 08/02/24 Primary care physician: Dk Gracia MD Consults: 07/31/24 07:25 Consult to Orthopedics Routine Consulting Provider: [facility] Reason for consultation: right humerus fracture Has provider been notified: No 08/01/24 09:26 Consult to Cardiology Routine Consulting Provider: [facility] Reason for consultation: Syncope Has provider been notified: Yes DS: Diagnosis Discharge Diagnosis (1) Syncope: Status: Acute (2) Left bundle branch block: Status: Acute DS: Summary Hospital Course Hospital Course: admission hpi Chief Complaint: Fall 89-year-old female with hypertension, HLD, GERD who presented to the hospital following a fall. While dressing today the patient sustained a fall from wrong footing and fell onto her right side. She did not hit her head and there was no loss of consciousness. She proceeded to functioning well the rest of the day including her birthday celebration, EMS assessed her at the time and deemed her condition and necessary for ED evaluation. Then around 11, she felt dizzy and had an episode of vomiting while on the toilet and her son who found her report that she was briefly unresponsive. ED eval: She has a large right flank area ecchymoses. CT of the nondisplaced right dorsal-lateral 10th, 11th, and 12th rib fractures, Right dorsal soft tissue hematoma; approaching 10 cm, Comminuted proximal right humerus fracture with likely re-injury given proximal lucencies. ECG shows LBBB, no prior. hemoglobin is 9.4 and hematocrit 27.6, no recent labs for comparaison. . Hospital course: The patient presented following a fall, which appears mechanical in nature based on the history. However, later in the day, she experienced an episode of passing out while sitting on the toilet. Her fall resulted in right 10th, 11th, and 12th rib fractures, a right dorsal soft tissue hematoma approximately 10 cm in size, acute blood loss anemia, and a possible right humerus fracture. During her hospital stay, she was observed to have hypoxia while sleeping, consistent with sleep apnea, though no hypoxia was noted during the day. She underwent an overnight oxygen study and qualified for oxygen use during sleep. She will likely benefit from a full outpatient sleep study. Regarding the fall, she was evaluated by physical therapy, which recommended acute inpatient rehabilitation. The rib fractures are stable, and she has no hypoxia, requiring only Tylenol for pain management. Her acute blood loss anemia is likely secondary to the hematoma, with stable hemoglobin/hematocrit levels around 04/28. Iron therapy has been initiated. Imaging showed a possible right humerus fracture, which was evaluated by Orthopedics, with conservative management recommended. The syncopal episode on the toilet is attributed to a likely vasovagal event. Orthostatic blood pressure readings were normal. ECG showed a left bundle branch block (LBBB), which is an old finding, and cardiac monitoring did not detect any arrhythmias. The patient was evaluated by Cardiology and will undergo further testing with Holter or event monitoring on an outpatient basis. HTN--continue lisinopril HLD--statin Time Attestation Discharge Coordination Time (in mins): 35 Quality: Safe Use of Opioids Does Pt have an Active Cancer Diagnosis on the Problem List?: No Quality: Stroke Does the patient have a stroke diagnosis?: No Physical Exam Vital Signs: Vital Signs: Last Vital Signs Temp 97.9 F 08/02/24 08:00 Pulse 86 08/02/24 08:00 Resp 14 08/02/24 08:00 BP 159/71 H 08/02/24 08:00 Pulse Ox 100 08/02/24 08:00 O2 Del Method Room Air 08/02/24 08:00 O2 Flow Rate 3 08/01/24 08:00 BMI result Body Mass Index 35.3 Const: Other: General: AO X 3, no acute distress Resp: CTA bilateral CVS: S1,S2,RRR GI: +BS, NT, no distention Skin: see pic Neuro: motor grossly intact Psych: appropriate affect Discharge Plan Discharge Anticipated Discharge Date/Time: 08/02/24 11:38 Patient Disposition: Xfer Inpatient Rehab Fac Discharge Diagnosis: Fall, syncope, Referrals: Dk Gracia MD [Primary Care Provider] - 1 Week Discharge Medications: No Action atorvastatin 40 mg tablet 40 mg PO BEDTIME magnesium oxide 400 mg (241.3 mg magnesium) tablet 400 mg PO DAILY calcium carbonate 500 mg calcium (1,250 mg) tablet 500 mg PO BID cholecalciferol (vitamin D3) [Vitamin D3] 10 mcg (400 unit) tablet 20 mcg PO DAILY ramipril 10 mg capsule 10 mg PO BID escitalopram oxalate 10 mg tablet 10 mg PO DAILY Actemra ACTPen 162 mg/0.9 mL pen injector 162 mg subcut Q2W acetaminophen 650 mg Tablet Extended Release 1,300 mg PO BID nystatin 100,000 unit/gram Powder 1 appl TOPICAL BID PRN (Reason: Rash) ketoconazole 2 % Cream 1 appl TOPICAL BID PRN (Reason: psoriasis) omeprazole 20 mg capsule,delayed release(DR/EC) 20 mg PO MOWESA@0630 Diet: Advance to usual diet Activity on Discharge: As tolerated Stand Alone Forms: Patient Portal Discharge page Print Language: Icelandic Care Plan Goals: recovery from fall, syncope, rib fractures Health Concerns: recovery from fall, syncope, anemia, and rib fracture Plan of Treatment: to acute rehab follow up with Dr. Arita for futher cardiac testing for syncope use incentive spirometry as directed take Tylenol for pain Use oxygen as directed while sleeping for likely sleep apnea Assessment: see above
[2024-08-02 12:00] VITALS: BP 126/58; PULSE 74; RESP 16; TEMP 36.3; O2SAT 98
== END 2024-08-02 17:18 ==
LOC: HO.ED 03:40 → HO.EDOVER 03:50 → HO.IMC 04:34
PROVIDERS: Physician Assistant Medical; Admitting Provider Internal Medicine; Emergency Provider Emergency Medicine; PCP Internal Medicine; Visit Provider Internal Medicine
DX: R55 Syncope and collapse (principal); I44.7 Left bundle-branch block, unspecified; D50.0 Iron deficiency anemia secondary to blood loss (chronic); R11.10 Vomiting, unspecified; S22.41XA Multiple fractures of ribs, right side, initial encounter for closed fracture; S42.201A Unspecified fracture of upper end of right humerus, initial encounter for closed fracture; S30.1XXA Contusion of abdominal wall, initial encounter; W18.30XA Fall on same level, unspecified, initial encounter; Y93.9 Activity, unspecified; Y92.9 Unspecified place or not applicable; Y99.9 Unspecified external cause status; R10.9 Unspecified abdominal pain; R26.9 Unspecified abnormalities of gait and mobility; R07.9 Chest pain, unspecified; K21.9 Gastro-esophageal reflux disease without esophagitis; I10 Essential (primary) hypertension; E78.5 Hyperlipidemia, unspecified; M19.90 Unspecified osteoarthritis, unspecified site; Z03.818 Encounter for observation for suspected exposure to other biological agents ruled out; Z79.899 Other long term (current) drug therapy
CPT/HCPCS: 0241U; 36415; 70450; 71260; 72125; 73030; 74177; 80048; 80053; 81001; 84484; 85014; 85018; 85025; 85027; 85610; 93005; 93306; 94762; 96360; 96361; 97110; 97116; 97162; 97166; 97530; 99222; 99285; J7120; Q9957; Q9967

== ENCOUNTER → 2024-07-31 00:38 | Outpatient (BNV) | payer BC, MEDICARE, SELFPAY | PROVIDERS: Admitting Provider Internal Medicine; Emergency Provider Emergency Medicine; PCP Internal Medicine; Visit Provider Internal Medicine Cardiovascular Disease | DX: R94.31 Abnormal electrocardiogram [ECG] [EKG] (principal); I44.7 Left bundle-branch block, unspecified | CPT/HCPCS: 93010 ==

== ENCOUNTER → 2024-07-31 00:46 | Outpatient (BNV) | payer BC, MEDICARE, SELFPAY | PROVIDERS: Emergency Provider Emergency Medicine; PCP Internal Medicine; Visit Provider Radiology Neuroradiology | DX: S22.41XA Multiple fractures of ribs, right side, initial encounter for closed fracture (principal); S42.201A Unspecified fracture of upper end of right humerus, initial encounter for closed fracture; Z03.89 Encounter for observation for other suspected diseases and conditions ruled out | CPT/HCPCS: 70450; 71260; 72125; 74177 ==

== ENCOUNTER 2024-07-31 03:35 | Outpatient (BNV) | payer BC, MEDICARE, SELFPAY | END 2024-08-01 07:00 | PROVIDERS: Admitting Provider Internal Medicine; Emergency Provider Emergency Medicine; PCP Internal Medicine; Visit Provider Internal Medicine Cardiovascular Disease | DX: R94.31 Abnormal electrocardiogram [ECG] [EKG] (principal); I44.7 Left bundle-branch block, unspecified; R93.1 Abnormal findings on diagnostic imaging of heart and coronary circulation | CPT/HCPCS: 93306 ==

== ENCOUNTER → 2024-07-31 03:35 | Outpatient (BNV) | payer BC, MEDICARE, SELFPAY | PROVIDERS: Admitting Provider Internal Medicine; Emergency Provider Emergency Medicine; PCP Internal Medicine; Visit Provider Physician Assistant | DX: S42.201A Unspecified fracture of upper end of right humerus, initial encounter for closed fracture (principal) | CPT/HCPCS: 99499 ==

== ENCOUNTER → 2024-07-31 03:35 | Outpatient (BNV) | payer BC, MEDICARE, SELFPAY | PROVIDERS: Admitting Provider Internal Medicine; Emergency Provider Emergency Medicine; PCP Internal Medicine; Visit Provider Physician Assistant Medical | DX: T14.8XXA Other injury of unspecified body region, initial encounter (principal); S22.39XA Fracture of one rib, unspecified side, initial encounter for closed fracture; D64.9 Anemia, unspecified | CPT/HCPCS: 99223; 99232; 99499 ==

== ENCOUNTER → 2024-07-31 03:35 | Outpatient (BNV) | payer BC, MEDICARE, SELFPAY | PROVIDERS: Admitting Provider Internal Medicine; Emergency Provider Emergency Medicine; PCP Internal Medicine; Visit Provider Internal Medicine Cardiovascular Disease | DX: R55 Syncope and collapse (principal); I44.7 Left bundle-branch block, unspecified | CPT/HCPCS: 99222 ==

== ENCOUNTER → 2024-08-25 11:25 | Outpatient (REF) | payer BC, SELFPAY | LOC: HO.CARD 11:25 | PROVIDERS: PCP Internal Medicine; Visit Provider Internal Medicine Cardiovascular Disease | DX: R55 Syncope and collapse (principal); I44.7 Left bundle-branch block, unspecified | CPT/HCPCS: 93270 ==

== ENCOUNTER → 2024-08-25 11:28 | Outpatient (BNV) | payer BC, SELFPAY | PROVIDERS: PCP Internal Medicine; Visit Provider Internal Medicine Cardiovascular Disease | DX: I49.1 Atrial premature depolarization (principal) | CPT/HCPCS: 93272 ==